=== PATIENT | male | born 1960 | race Caucasian/White ===

== ENCOUNTER 2024-03-16 18:38 | Inpatient (IN) | payer OTHER, SELFPAY ==
--- NOTE | ~2024-03-16 | XR_ITS ---
EXAMINATION: XR elbow RT min 3V XR wrist RT min 3V CLINICAL INFORMATION: Trauma COMPARISON: None TECHNIQUE: AP and lateral view of the right elbow, 2 images. PA, lateral and oblique views of the right wrist, 3 images. FINDINGS: Right elbow: Acute fracture through the olecranon process with 3 cm distraction. The humeroradial joint is maintained. The radius is intact. There is associated soft tissue swelling. No significant joint effusion. No radiopaque foreign body. Right wrist: No acute fracture. The carpal rows are appropriately aligned. Joint spaces are maintained. Alignment is anatomic. There is moderate first carpometacarpal joint arthrosis with osteophytosis. No erosions or soft tissue calcifications. XR/XR elbow RT min 3V IMPRESSION: 1. Acute fracture through the olecranon process with 3 cm distraction. The humeroradial joint is maintained. 2. No acute fracture or dislocation of the right wrist.
--- NOTE | ~2024-03-16 | XR_ITS ---
EXAMINATION: XR elbow RT min 3V XR wrist RT min 3V CLINICAL INFORMATION: Trauma COMPARISON: None TECHNIQUE: AP and lateral view of the right elbow, 2 images. PA, lateral and oblique views of the right wrist, 3 images. FINDINGS: Right elbow: Acute fracture through the olecranon process with 3 cm distraction. The humeroradial joint is maintained. The radius is intact. There is associated soft tissue swelling. No significant joint effusion. No radiopaque foreign body. Right wrist: No acute fracture. The carpal rows are appropriately aligned. Joint spaces are maintained. Alignment is anatomic. There is moderate first carpometacarpal joint arthrosis with osteophytosis. No erosions or soft tissue calcifications. XR/XR wrist RT min 3V IMPRESSION: 1. Acute fracture through the olecranon process with 3 cm distraction. The humeroradial joint is maintained. 2. No acute fracture or dislocation of the right wrist.
--- NOTE | ~2024-03-16 | FL_ITS ---
EXAMINATION: XR FLUOROSCOPY WITH IMAGES CLINICAL INFORMATION: Right elbow ORIF. COMPARISON: Right elbow 03/16/2024 TECHNIQUE: Fluoroscopy Supervised By: Dr. Robert Ng. Fluoroscopy Time: 0.0. Cumulative Dose: 0.127 mGy. DAP: 0.72187 mGy-cm2. Images: 2. FINDINGS: 2 images obtained during pinning and cerclage suturing of distracted olecranon fracture. Imaging shows good alignment. See Dr. Robert Ng's report for full details. FL/FL guidance in OR IMPRESSION: Fluoroscopy and spot films provided during ORIF of olecranon fracture.
[2024-03-16 18:56] VITALS: BP 90/56; PULSE 67; RESP 18; TEMP 36.8; O2SAT 97; BMI 22.4
[2024-03-16 19:15] VITALS: BP 119/79; PULSE 64; RESP 21; TEMP 36.9; O2SAT 96
--- NOTE | 2024-03-16 19:17 | ED_ITS ---
HPI - Fall General Chief Complaint: Fall Stated Complaint: elbow inj, fell from ladder Time Seen by Provider: 03/16/24 19:16 Source: patient Mode of arrival: ambulatory History of Present Illness ED Provider: Blessing Mccauley PA-C HPI Narrative: 63-year-old male with history of TBI, PTSD and anxiety presents after a fall. Patient states he was on a ladder cleaning out his gutters. He was on the lower 5th step when he fell backwards landing onto his elbow. Patient complains of elbow pain and right hip pain. Patient did not strike his head, he has not on blood thinners. Patient has been ambulatory since the fall. Tetanus vaccine is up-to-date. Related Data Allergies Allergy/AdvReac Type Severity Reaction Status Date / Time acetaminophen [From PERCOCET] Allergy Mild VOMITING Verified 03/16/24 19:00 From PERCOCET Allergy Mild VOMITING Uncoded 06/03/20 15:37 Review of Systems 2 Review of Systems: Yes all other systems are reviewed and are negative Constitutional: Constitutional: Denies fatigue and Denies fever(s) Cardiovascular: Cardiovascular: Denies chest pain and Denies dyspnea Respiratory: Respiratory: Denies dyspnea Gastrointestinal: Gastrointestinal: Denies abdominal pain Musculoskeletal: Musculoskeletal: Reports arthralgias Endocrine: Endocrine: Denies fatigue PMFSH Past Medical History Attestation statement: The following information was validated with the patient. Social History Social History Smoked in Last 30 Days: No Use of substances other than those prescribed or required for medical reasons: No Advance Directives: No Advance Directives Information Provided: Yes Do you have a plan to hurt others: No Plan Physical Exam 2 Vital Signs: Vital Signs: Last Vital Signs Temp 98.5 F 03/16/24 19:15 Pulse 64 03/16/24 19:15 Resp 14 03/16/24 20:07 BP 119/79 03/16/24 19:15 Pulse Ox 96 03/16/24 19:15 O2 Del Method Room Air 03/16/24 19:15 BMI result Body Mass Index 22.4 Const: Other: Alert, well in appearance, no sign of head trauma on exam Orientation/consciousness: oriented to person, oriented to place and oriented to time Chest: Other: No focal right lateral chest wall pain or deformity Resp: Other: Nonlabored respirations Cardio: Other: Normal peripheral perfusion Skin: Other: No rash Neuro: General: oriented to person, oriented to place and oriented to time Psych: Other: Cooperative, anxious, tearful Course Consultations Consultation #1: paged Idalia Lassiter PA-C from the orthopedic service, she will be admitting the Pt to their service Time: 19:53 Medications Administered Discontinued Medications Generic Name Dose Route Start Last Admin Trade Name Layo PRN Reason Stop Dose Admin Cefazolin Sodium/Dextrose 2 gm in 50 mls @ 100 mls/hr 03/16/24 19:46 03/16/24 20:40 Ancef IV 03/16/24 20:15 Infused ONCE ONE Infusion Lorazepam 1 mg 03/16/24 20:37 03/16/24 21:03 Lorazepam 2 Mg/Ml Vial IVPUSH 03/16/24 20:38 1 mg ONCE ONE Administration Morphine Sulfate 4 mg 03/16/24 19:22 03/16/24 20:07 Morphine Sulfate 4 Mg/Ml Cartridge IVPUSH 03/16/24 19:23 4 mg ONCE ONE Administration Protocol Ondansetron HCl 4 mg 03/16/24 19:22 03/16/24 20:07 Ondansetron Hcl 4 Mg/2 Ml Vial IVPUSH 03/16/24 19:23 4 mg ONCE ONE Administration Procedures Laceration Laceration 1: Site: upper extremity (elbow) Side (If applicable): right Size (cm): 0.5 Description: other (punctures, 2 sites surrounding olecranon) Depth: simple, single layer Local Anesthetic: lidocaine 2% and with epi Amount of anesthesia used (mL): 3 Pre-repair: irrigated extensively Skin layer closed with: nylon Size (cm): 3-0 Number of sutures: 3 Technique: simple, interrupted Orthopedic Splinting/Casting Injury #1: Side: right Upper Extremity Injury Location: elbow Upper Extremity Immobilizer: sugar tong splint Medical Decision Making Medical Decision Making MDM Narrative: 63-year-old male with history of TBI, PTSD and anxiety presents after a fall. Patient states he was on a ladder cleaning out his gutters. He was on the lower 5th step when he fell backwards landing onto his elbow. Patient complains of elbow pain and right hip pain. Patient did not strike his head, he has not on blood thinners. Patient has been ambulatory since the fall. Tetanus vaccine is up-to-date. No relevant chronic issues History: Per patient and his partner I have considered the following differential diagnoses: Fracture, dislocation, contusion, laceration Plan: We will be imaging the elbow and the wrist, as he is having referred pain to the wrist. We will obtain screening labs and a the event that the patient has sustained an acute injury that require surgical intervention. We will be giving morphine and Zofran. To note, the patient does not have an allergy to Percocet he simply becomes nauseous. After taking down the dressing, the patient has 2 puncture wounds surrounding the olecranon, I will place a few sutures to control the bleeding. We will be splinting the injury as well I have independently reviewed the following tests: Labs: X-ray right elbow: Olecranon fracture X-ray right wrist: No fracture or dislocation We will be patient orthopedic service Lab Data 03/16/24 19:51 03/16/24 19:51 Labs: Lab Results 03/16/24 Range/Units 19:51 WBC 14.7 H (4.8-10.8) X10*3/uL RBC 4.38 L (4.60-5.80) X10*6/uL Hgb 14.1 (14.0-18.0) g/dl Hct 39.1 L (42.0-52.0) % MCV 89.3 (80.0-98.0) fL MCH 32.2 (27.0-33.0) pg MCHC 36.1 H (31.0-36.0) g/dl RDW 11.9 (11.0-16.0) % Plt Count 258 (160-400) X10*3/uL MPV 9.4 (9.4-12.4) fL Immature Gran % (Auto) 0.4 (0.0-0.4) % Neut % (Auto) 78.8 H (45-73) % Lymph % (Auto) 10.9 L (20-40) % Winn % (Auto) 8.7 (2-11) % Eos % (Auto) 0.9 (0-4) % Baso % (Auto) 0.3 (0-2) % Lymph # (Auto) 1.6 (1.2-4.9) X10*3/uL Winn # (Auto) 1.3 H (0.1-1.2) X10*3/uL Eos # (Auto) 0.1 (0.0-0.4) X10*3/uL Baso # (Auto) 0.0 (0.0-0.2) X10*3/uL Abs Immat Gran (auto) 0.06 H (0.00-0.03) X10*3/uL Absolute Neuts (auto) 11.6 H (2.0-8.3) x10*3/uL Absolute Nucleated RBC 0.000 (0.0-0.012) X10*3/uL Nucleated RBC % (auto) 0.0 (0.0-0.2) /100WBC Sodium 140 (135-145) mmol/L Potassium 3.8 (3.3-5.1) mmol/L Chloride 103 (96-108) mmol/L Carbon Dioxide 28 (22-29) mmol/L Anion Gap 13 (12-20) BUN 24 H (9-16) mg/dL Creatinine 0.88 (0.5-1.4) mg/dL Estim Creat Clear Calc 90.9 Estimated GFR > 60 Random Glucose 99 (60-115) mg/dL Calcium 9.6 (8.4-10.2) mg/dL Magnesium 2.0 (1.6-2.6) mg/dL Total Bilirubin 0.6 (0.0-1.0) mg/dL AST 19 (5-37) U/L ALT 18 (0-40) U/L Alkaline Phosphatase 43 (39-117) U/L Total Protein 6.3 L (6.5-8.0) g/dL Albumin 4.0 (3.5-5.0) g/dL Discharge Plan Discharge Clinical Impression: Fracture of olecranon, right, open Patient Disposition: Admitted As Inpatient
[2024-03-16 19:55] LABS: MANUAL DIFF FLAG NO
[2024-03-16 19:56] LABS: Basophils Percent Auto 0.3 % (0-2); Eosinophils Absolute Auto 0.1 X10*3/uL (0.0-0.4); Eosinophils Percent Auto 0.9 % (0-4); Hematocrit 39.1 % (42.0-52.0); Hemoglobin 14.1 g/dl (14.0-18.0); Imm Gran Abs Auto 0.06 X10*3/uL (0.00-0.03); Imm Gran Pct Auto 0.4 % (0.0-0.4); Lymphocytes Absolute Auto 1.6 X10*3/uL (1.2-4.9); Lymphocytes Percent Auto 10.9 % (20-40); Mean Corpuscular HGB Conc 36.1 g/dl (31.0-36.0); Mean Corpuscular Hemoglobin 32.2 pg (27.0-33.0); Mean Corpuscular Volume 89.3 fL (80.0-98.0); Mean Platelet Volume 9.4 fL (9.4-12.4); Monocytes Absolute Auto 1.3 X10*3/uL (0.1-1.2); Monocytes Percent Auto 8.7 % (2-11); Neutrophils Absolute Auto 11.6 x10*3/uL (2.0-8.3); Neutrophils Percent Auto 78.8 % (45-73); Platelet Count 258 X10*3/uL (160-400); Red Blood Count 4.38 X10*6/uL (4.60-5.80); Red Cell Distribution Width 11.9 % (11.0-16.0); White Blood Count 14.7 X10*3/uL (4.8-10.8)
--- NOTE | 2024-03-16 20:06 | PC.NURSE ---
Per Claritza, ED provider, blood draw for lactic acid and blood cultures not needed at this time.
[2024-03-16 20:07] VITALS: RESP 14
[2024-03-16] MEDS: Morphine Sulfate 4 MG/ML CARTRIDGE IVPUSH (20:07)
[2024-03-16] MEDS: ceFAZolin Sodium/Dextrose,Iso 2 GM/50 ML PIGGYBACK IV (20:07)
[2024-03-16] MEDS: ondansetron HCL 4 MG/2 ML VIAL IVPUSH (20:07)
[2024-03-16 20:09] LABS: Alanine Aminotransferase 18 U/L (0-40); Alkaline Phosphatase 43 U/L (39-117); Anion Gap 13 (12-20); Aspartate Amino Transferase 19 U/L (5-37); Bilirubin Total 0.6 mg/dL (0.0-1.0); Blood Urea Nitrogen 24 mg/dL (9-16); Calcium 9.6 mg/dL (8.4-10.2); Carbon Dioxide 28 mmol/L (22-29); Chloride 103 mmol/L (96-108); Creatinine Clr Calc Pharmacy 90.9; Estimated Glomerular Filt Rate > 60; Glucose Random 99 mg/dL (60-115); Potassium 3.8 mmol/L (3.3-5.1); Sodium 140 mmol/L (135-145); Total Protein 6.3 g/dL (6.5-8.0)
[2024-03-16] MEDS: LORazepam 2 MG/ML VIAL 1 MG IVPUSH (21:03)
--- NOTE | 2024-03-16 22:07 | PM.EVENT ---
Event Note Date of Service: 03/16/24 Event Note: Patient with Rt olecranon fx -admit to ortho -pending ORIF tues or weds Post splint, keep clean dry and intact elevate Full H&P note to follow Time Spent With Patient Time: Total time managing care of this patient today ____ minutes.
[2024-03-16 22:42] VITALS: BP 111/64; PULSE 86; RESP 15; TEMP 36.8; O2SAT 96
[2024-03-16 23:08] VITALS: RESP 20
[2024-03-16] MEDS: Lactated Ringers 1,000 ML 100 ML IVCONT (23:08)
[2024-03-16] MEDS: HYDROmorphone HCl 0.5 MG/0.5 ML SYRINGE 0.25 MG IVPUSH (23:08)
[2024-03-16] MEDS: 0.9 % Sodium Chloride Flush 3 ML SYRINGE IVFLUSH (23:10)
[2024-03-17] VITALS (7 sets, daily range): BP systolic 120–161; BP diastolic 75–93; PULSE 52–64; RESP 15–18; TEMP 36.1–37.1; O2SAT 96–98; BMI 23.2
[2024-03-17] MEDS: oxyCODONE HCl Immed Release 5 MG TABLET PO ×2 (01:22→12:20)
[2024-03-17 05:12] LABS: Basophils Percent Auto 0.3 % (0-2); Eosinophils Absolute Auto 0.1 X10*3/uL (0.0-0.4); Eosinophils Percent Auto 0.7 % (0-4); Hematocrit 38.9 % (42.0-52.0); Hemoglobin 13.9 g/dl (14.0-18.0); Imm Gran Abs Auto 0.04 X10*3/uL (0.00-0.03); Imm Gran Pct Auto 0.3 % (0.0-0.4); Lymphocytes Percent Auto 16.1 % (20-40); MANUAL DIFF FLAG NO; Mean Corpuscular HGB Conc 35.7 g/dl (31.0-36.0); Mean Corpuscular Hemoglobin 32.3 pg (27.0-33.0); Mean Corpuscular Volume 90.5 fL (80.0-98.0); Mean Platelet Volume 9.5 fL (9.4-12.4); Monocytes Absolute Auto 1.4 X10*3/uL (0.1-1.2); Monocytes Percent Auto 11.2 % (2-11); Neutrophils Absolute Auto 8.7 x10*3/uL (2.0-8.3); Neutrophils Percent Auto 71.4 % (45-73); Platelet Count 226 X10*3/uL (160-400); Red Cell Distribution Width 12.1 % (11.0-16.0); White Blood Count 12.2 X10*3/uL (4.8-10.8)
[2024-03-17 05:29] LABS: Anion Gap 12 (12-20); Blood Urea Nitrogen 21 mg/dL (9-16); Calcium 9.3 mg/dL (8.4-10.2); Carbon Dioxide 27 mmol/L (22-29); Chloride 105 mmol/L (96-108); Creatinine Clr Calc Pharmacy 97.6; Estimated Glomerular Filt Rate > 60; Glucose Fasting 100 mg/dL (60-99); Potassium 4.1 mmol/L (3.3-5.1); Sodium 140 mmol/L (135-145)
--- NOTE | 2024-03-17 07:45 | P.HPOP_ITS ---
History of Present Illness History of Present Illness Date of Service: 03/17/24 <Idalia Lassiter PA-C - Last Filed: 03/17/24 10:07> 03/18/24 <Robert Ng MD - Last Filed: 03/18/24 15:16> Chief complaint: Rt Olecranon fracture <Idalia Lassiter PA-C - Last Filed: 03/17/24 10:07> Narrative: Hebert Owens is a 63 year old male admitted to the orthopedic service s/p falling off a ladder yesterday while cleaning his gutters. He was brought to the ED where xrays were obtained which were significant for Right displaced olecranon fracture. He has a H GERD, anxiety/depression and Prostate cancer s/p protatectomy 2022. Not on any chemo/radiation medications. He is Left hand dominant. He lives at home with his partner, Solo. 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 <Idalia Lassiter PA-C - Last Filed: 03/17/24 10:07> Review of Systems 2 Review of Systems: Yes all other systems are reviewed and are negative < Idalia Lassiter PA-C - Last Filed: 03/17/24 10:07> [facility] Past Medical History Medical History: Medical History Prostate cancer Depression Anxiety GERD (gastroesophageal reflux disease) <Idalia Lassiter PA-C - Last Filed: 03/17/24 10:07> Surgical History Surgical History: Surgical History (Updated 03/18/24 @ 14:10 by Shima Washington RN) Hx of colonoscopy H/O prostatectomy <Idalia Lassiter PA-C - Last Filed: 03/17/24 10:07> Social History Social History: Social History Household Members: Significant Other Housing: House Do you presently have visiting nurse or other home services: No Comment: patient rings appropriately Patient Tobacco Use Status: Former Tobacco user Smoked in Last 30 Days: No Use of substances other than those prescribed or required for medical reasons: No Currently Displaying Signs/Symptoms of Drug Intoxication Withdrawal: No Have you been hit, kicked, punched, or otherwise hurt by someone within the past year? If so, by whom?: No Do you feel safe in your current relationship?: Yes Is there a partner from a previous relationship who is making you feel unsafe now?: No Are you made to feel afraid or neglected: No Are you DNR?: No Advance Directives: No Advance Directives Information Provided: Yes Do you have a plan to hurt others: No Plan Recently lost weight without trying: No Nutrition Risks: No Nutritional Risk service: No <Idalia Lassiter PA-C - Last Filed: 03/17/24 10:07> Meds Allergies/Adverse reactions: Allergies Allergy/AdvReac Type Severity Reaction Status Date / Time acetaminophen [From PERCOCET] Allergy Mild VOMITING Verified 03/18/24 13:56 From PERCOCET Allergy Mild VOMITING Uncoded 03/18/24 13:56 <Idalia Lassiter PA-C - Last Filed: 03/17/24 10:07> Active Medications: Current Medications Acetaminophen (Acetaminophen 325 Mg Tablet) 650 mg PO Q6H PRN PRN Reason: Pain, Mild (Pain Scale 1-3), fever or headache Docusate Sodium (Docusate Sodium 100 Mg Capsule) 100 mg PO BID LOY Hydromorphone HCl (Hydromorphone Hcl 0.5 Mg/0.5 Ml Syringe) 0.25 mg IVPUSH Q4H PRN; Protocol PRN Reason: Pain, Severe (Pain Scale 7-10) Last Admin: 03/16/24 23:08 Dose: 0.25 mg Lactated Ringer's (Lr) 1,000 mls @ 100 mls/hr IVCONT .Q10H LOY Last Admin: 03/16/24 23:08 Dose: 100 mls/hr Ondansetron HCl (Ondansetron Hcl 4 Mg/2 Ml Vial) 4 mg IVPUSH Q8H PRN PRN Reason: Nausea and Vomiting Oxycodone HCl (Oxycodone Hcl Immed Release 5 Mg Tablet) 5 mg PO Q4H PRN PRN Reason: Pain, Moderate(Pain Scale 4-6) Last Admin: 03/17/24 01:22 Dose: 5 mg Sodium Chloride (0.9 % Sodium Chloride Flush 3 Ml Syringe) 3 ml IVFLUSH QSHIFT [facility] Last Admin: 03/16/24 23:10 Dose: 3 ml <Idalia aLssiter PA-C - Last Filed: 03/17/24 10:07> Home medications: Home Medications ?Medication ?Instructions ?Recorded ?Confirmed ?Last Taken ?Type Lactobacillus rhamnosus GG 10 1 cap PO DAILY 03/17/24 03/17/24 03/16/24 History billion cell capsule (Culturelle) alprazolam 0.25 mg tablet 0.25 mg PO DAILY 03/17/24 03/17/24 03/16/24 History atorvastatin 10 mg tablet 10 mg PO DAILY 03/17/24 03/17/24 03/16/24 History cholecalciferol (vitamin D3) 25 25 mcg PO DAILY 03/17/24 03/17/24 03/16/24 History mcg (1,000 unit) tablet (Vitamin D3) escitalopram oxalate 5 mg/5 mL 4 mg PO DAILY 03/17/24 03/17/24 03/16/24 History oral solution [id number]-fish oil 120 1 cap PO DAILY 03/17/24 03/17/24 03/16/24 History mg-180 mg-60 mg-1,200 mg capsule, DR (Fish Oil) omeprazole 40 mg capsule,delayed 40 mg PO DAILY 03/17/24 03/17/24 03/16/24 History release potassium citrate 10 mEq (1,080 20 meq PO DAILY 03/17/24 03/17/24 03/16/24 History mg) tablet,extended release tadalafil 5 mg tablet 5 mg PO DAILY PRN Erectile 03/17/24 03/17/24 Unknown History Dysfunction trazodone 50 mg tablet 50 mg PO BEDTIME 03/17/24 03/17/24 03/16/24 History <Idalia Lassiter PA-C - Last Filed: 03/17/24 10:07> Physical Exam 2 Vital Signs: Vital Signs: Last Vital Signs Temp 98.4 F 03/17/24 07:23 Pulse 63 03/17/24 07:23 Resp 16 03/17/24 07:23 BP 127/77 03/17/24 07:23 Pulse Ox 96 03/17/24 07:23 O2 Del Method Room Air 03/17/24 07:23 BMI result Body Mass Index 23.2 <ANANYA Kilgore Last Filed: 03/17/24 10:07> Const: General: cooperative, healthy appearing, comfortable, no acute distress, well developed and alert <Idalia Lassiter ANANYA - Last Filed: 03/17/24 10:07> Orientation/consciousness: patient oriented x3 <ANANYA Kilgore Last Filed: 03/17/24 10:07> HEENT: Head: Yes normal to inspection, Yes normocephalic and Yes atraumatic <Idalia Lassiter PA-C - Last Filed: 03/17/24 10:07> Eyes: General: appearance normal, both eyes and all related structures < Idalia Lassiter ANANYA Martinez Last Filed: 03/17/24 10:07> Neck: Neck: Yes normal visual inspection and Yes no lymphadenopathy <Jordyn Lassiter ANANYA - Last Filed: 03/17/24 10:07> Resp: Effort & Inspection: normal respiratory effort and able to speak in complete sentences <Idalia Lassiter ANANYA Martinez Last Filed: 03/17/24 10:07> Cardio: Rate: regular rate <ANANYA Kilgore Filed: 03/17/24 10:07> Peripheral pulses: Peripheral pulses 2+ throughout <Idalia Lassiter ANANYA Martinez Filed: 03/17/24 10:07> GI: Inspection: Yes normal to inspection <Idalia Lassiter ANANYA Martinez Filed: 03/17/24 10:07> Palpation (GI): Soft to palpation <Idalia Lassiter ANANYA Last Filed: 03/17/24 10:07> Skin: General skin exam: no rashes or lesions noted <Idalia Lassiter ANANYA Martinez Filed: 03/17/24 10:07> Neuro: General: patient oriented x3 <Idalia Lassiter ANANYA Martinez Filed: 03/17/24 10:07> Extrem: Other: Right elbow splint intact. He has good sensation throughout the deltoid region and into the hand and fingers. Pulses inact. Of note, ED did mention two punctures around the elbow they had to wash and suture. <Idalia GaminoANANYA aguilera - Last Filed: 03/17/24 10:07> Psych: Appearance: grossly normal <Idalia LassiterANANYA - Last Filed: 03/17/24 10:07> Mental Status: mental status grossly normal <Andreaa ANANYA aguilera - Last Filed: 03/17/24 10:07> Results Labs Result Diagrams: 03/18/24 08:21 03/18/24 08:21 <Idalia GaminoANANYA aguilera - Last Filed: 03/17/24 10:07> Labs: Abnormal lab results 03/16/24 03/17/24 Range/Units 19:51 05:06 WBC 14.7 H 12.2 H (4.8-10.8) X10*3/uL RBC 4.38 L 4.30 L (4.60-5.80) X10*6/uL Hgb 13.9 L (14.0-18.0) g/dl Hct 39.1 L 38.9 L (42.0-52.0) % MCHC 36.1 H (31.0-36.0) g/dl Neut % (Auto) 78.8 H (45-73) % Lymph % (Auto) 10.9 L 16.1 L (20-40) % Fisher % (Auto) 11.2 H (2-11) % Fisher # (Auto) 1.3 H 1.4 H (0.1-1.2) X10*3/uL Abs Immat Gran (auto) 0.06 H 0.04 H (0.00-0.03) X10*3/uL Absolute Neuts (auto) 11.6 H 8.7 H (2.0-8.3) x10*3/uL BUN 24 H 21 H (9-16) mg/dL Fasting Glucose 100 H (60-99) mg/dL Total Protein 6.3 L (6.5-8.0) g/dL H & H 03/16/24 03/17/24 Range/Units 19:51 05:06 Hgb 14.1 13.9 L (14.0-18.0) g/dl Hct 39.1 L 38.9 L (42.0-52.0) % All other labs normal. <Idalia Lassiter PA-C Last Filed: 03/17/24 10:07> Diagnostic results Elbow x-ray: other (XR elbow RT min 3V IMPRESSION: 1. Acute fracture through the olecranon process with 3 cm distraction. The humeroradial joint is maintained. 2. No acute fracture or dislocation of the right wrist.) <Idalia Lassiter PA-C Last Filed: 03/17/24 10:07> Assessment and Plan (1) Closed fracture of right olecranon process: Qualifiers: Encounter type: initial encounter Qualified Code(s): S 52.021A - Displaced fracture of olecranon process without intraarticular extension of right ulna, initial encounter for closed fracture <Idalia Lassiter PA-C Last Filed: 03/17/24 10:07> Status: Acute <Idalia Lassiter PA-C Filed: 03/17/24 10:07> I discussed the case with Dr Ng and explained the extent of the injury to the patient and options available which include surgical intervention. I explained the procedure in detail along with the length of recovery and rehab course. I explained the risk, benefits and alternatives. Risk including, but not limited to infection, blood clots, bleeding, non union or malunion , stiffness and nerve/tissue damage to surrounding areas. I answered all their questions and with their understanding they have consented to move forward with Operative Fixation of the Right elbow . The patient will be seen by medicine pre op and NPO after midnight. <Idalia Lassiter PA-C Last Filed: 03/17/24 10:07> Quality Stroke Does the patient have a stroke diagnosis?: No <Idalia Lassiter PA-C Filed: 03/17/24 10:07> VTE Prior VTE?: No <Idalia Lassiter PA-C Filed: 03/17/24 10:07> VTE Risk Level:: Surgical - low <Idalia Lassiter PA-C Filed: 03/17/24 10:07> VTE Device Contraindication: N/A - Device Ordered <Idalia Lassiter PA-C - Last Filed: 03/17/24 10:07> VTE Drug Contraindication: Treatment Not Indicated <Idalia Lassiter PA-C - Last Filed: 03/17/24 10:07> Procedures Date of Service Date of Service: 03/17/24 <Idalia Lassiter PA-C - Last Filed: 03/17/24 10:07> 03/18/24 <Robert Ng MD - Last Filed: 03/18/24 15:16>
[2024-03-17] MEDS: Lactated Ringers 1,000 ML 100 ML IVCONT ×2 (09:07→19:21)
--- NOTE | 2024-03-17 09:14 | P.CONHOSP_ITS ---
History of Present Illness Data of Consult Service Date: 03/17/24 Requesting physician: Idalia Lassiter Primary Care Provider: Lanre Pratt MD [facility] Reason for consult: medical evaluation pre op 63-year-old male with history of hyperlipidemia, mood disorder, history of prostate cancer s/p radical prostatectomy ([facility]), and GERD admitted to Orthopedic surgery for right-sided olecranon fracture with consult placed hospitalist service for preoperative clearance. The patient reports that yesterday while cleaning the gutters on a ladder, slipped and fell backwards landing directly on the right elbow. He reports pain is currently controlled in the elbow. Does endorse some pleuritic chest pain. No sob, uriostegui, wheezing, lightheadedness, palpitations, or retrostrenal chest pressure. He has no known history of cardiovascaular disease or stroke. He is a former alcohol smoker but denies any illicit substance use or alcohol use. Review of Systems 2 Review of Systems: Yes all other systems are reviewed and are negative FORMERLY [facility], [facility] Medical History Prostate cancer Depression Anxiety GERD (gastroesophageal reflux disease) Surgical History H/O prostatectomy Social History Household Members: Significant Other Housing: House Do you presently have visiting nurse or other home services: No Patient Tobacco Use Status: Former Tobacco user Smoked in Last 30 Days: No Use of substances other than those prescribed or required for medical reasons: No Have you been hit, kicked, punched, or otherwise hurt by someone within the past year? If so, by whom?: No Do you feel safe in your current relationship?: Yes Is there a partner from a previous relationship who is making you feel unsafe now?: No Are you made to feel afraid or neglected: No Advance Directives: No Advance Directives Information Provided: Yes Do you have a plan to hurt others: No Plan Recently lost weight without trying: No Nutrition Risks: No Nutritional Risk service: No Meds Allergies Allergy/AdvReac Type Severity Reaction Status Date / Time acetaminophen [From PERCOCET] Allergy Mild VOMITING Verified 03/16/24 19:00 From PERCOCET Allergy Mild VOMITING Uncoded 06/03/20 15:37 Active Medications: Current Medications Acetaminophen (Acetaminophen 325 Mg Tablet) 650 mg PO Q6H PRN PRN Reason: Pain, Mild (Pain Scale 1-3), fever or headache Docusate Sodium (Docusate Sodium 100 Mg Capsule) 100 mg PO BID [facility] Hydromorphone HCl (Hydromorphone Hcl 0.5 Mg/0.5 Ml Syringe) 0.25 mg IVPUSH Q4H PRN; Protocol PRN Reason: Pain, Severe (Pain Scale 7-10) Last Admin: 03/16/24 23:08 Dose: 0.25 mg Lactated Ringer's (Lr) 1,000 mls @ 100 mls/hr IVCONT .Q10H LOY Last Admin: 03/17/24 09:07 Dose: 100 mls/hr Ondansetron HCl (Ondansetron Hcl 4 Mg/2 Ml Vial) 4 mg IVPUSH Q8H PRN PRN Reason: Nausea and Vomiting Oxycodone HCl (Oxycodone Hcl Immed Release 5 Mg Tablet) 5 mg PO Q4H PRN PRN Reason: Pain, Moderate(Pain Scale 4-6) Last Admin: 03/17/24 01:22 Dose: 5 mg Sodium Chloride (0.9 % Sodium Chloride Flush 3 Ml Syringe) 3 ml IVFLUSH QSHIFT [facility] Last Admin: 03/17/24 08:26 Dose: Not Given Home Medications ?Medication ?Instructions ?Recorded ?Confirmed ?Last Taken ?Type Lactobacillus rhamnosus GG 10 1 cap PO DAILY 03/17/24 03/17/24 03/16/24 History billion cell capsule (Culturelle) alprazolam 0.25 mg tablet 0.25 mg PO DAILY 03/17/24 03/17/24 03/16/24 History atorvastatin 10 mg tablet 10 mg PO DAILY 03/17/24 03/17/24 03/16/24 History cholecalciferol (vitamin D3) 25 25 mcg PO DAILY 03/17/24 03/17/24 03/16/24 History mcg (1,000 unit) tablet (Vitamin D3) escitalopram oxalate 5 mg/5 mL 4 mg PO DAILY 03/17/24 03/17/24 03/16/24 History oral solution trjeu-0c-xvo-epa-fish oil 120 1 cap PO DAILY 03/17/24 03/17/24 03/16/24 History mg-180 mg-60 mg-1,200 mg capsule, DR (Fish Oil) omeprazole 40 mg capsule,delayed 40 mg PO DAILY 03/17/24 03/17/24 03/16/24 History release potassium citrate 10 mEq (1,080 20 meq PO DAILY 03/17/24 03/17/24 03/16/24 History mg) tablet,extended release tadalafil 5 mg tablet 5 mg PO DAILY PRN Erectile 03/17/24 03/17/24 Unknown History Dysfunction trazodone 50 mg tablet 50 mg PO BEDTIME 03/17/24 03/17/24 03/16/24 History Physical Exam 2 Vital Signs and Narrative: Vital Signs: Last Vital Signs Temp 98.4 F 03/17/24 07:23 Pulse 63 03/17/24 07:23 Resp 16 03/17/24 07:23 BP 127/77 03/17/24 07:23 Pulse Ox 96 03/17/24 07:23 O2 Del Method Room Air 03/17/24 07:23 BMI result Body Mass Index 23.2 Constitutional - Awake and Alert, No apparent distress Eyes - PERRLA, EOMI Cardiovascular - S1S2, RRR, No edema, 2+ radial pulses bilaterally Chest- preproducible ttp across anterior chest Respiratory - Normal lung expansion, Normal respiratory effort, No respiratory distress, CTA bilaterally Gastrointestinal - NT / ND; +BS; No rebound or guarding Extremities - no calf tenderness bilaterally, no swelling Musculoskeletal - right upper extremity immobilized and fiberglass splint Skin - Warm/Dry Neurological - Alert & oriented x3, sensation in tact Results Labs 03/17/24 05:06 03/17/24 05:06 Labs: Laboratory Results - last 24 hr 03/16/24 03/17/24 19:51 05:06 MCV 89.3 90.5 MCH 32.2 32.3 MCHC 36.1 H 35.7 RDW 11.9 12.1 Plt Count 258 226 MPV 9.4 9.5 Immature Gran % (Auto) 0.4 0.3 Neut % (Auto) 78.8 H 71.4 Lymph % (Auto) 10.9 L 16.1 L [place] % (Auto) 8.7 11.2 H Eos % (Auto) 0.9 0.7 Baso % (Auto) 0.3 0.3 Lymph # (Auto) 1.6 2.0 [place] # (Auto) 1.3 H 1.4 H Eos # (Auto) 0.1 0.1 Baso # (Auto) 0.0 0.0 Abs Immat Gran (auto) 0.06 H 0.04 H Absolute Neuts (auto) 11.6 H 8.7 H Absolute Nucleated RBC 0.000 0.000 Nucleated RBC % (auto) 0.0 0.0 Anion Gap 13 12 Estim Creat Clear Calc 90.9 97.6 Estimated GFR > 60 > 60 Random Glucose 99 Fasting Glucose 100 H Calcium 9.6 9.3 Magnesium 2.0 Total Bilirubin 0.6 AST 19 ALT 18 Alkaline Phosphatase 43 Total Protein 6.3 L Albumin 4.0 Imaging Radiologist's Impressions: Impressions Elbow X-Ray 03/16/24 19:30 IMPRESSION: 1. Acute fracture through the olecranon process with 3 cm distraction. The humeroradial joint is maintained. 2. No acute fracture or dislocation of the right wrist. Wrist X-Ray 03/16/24 19:30 IMPRESSION: 1. Acute fracture through the olecranon process with 3 cm distraction. The humeroradial joint is maintained. 2. No acute fracture or dislocation of the right wrist. Assessment and Plan (1) Closed fracture of right olecranon process: Qualifiers: Encounter type: initial encounter Qualified Code(s): S52.021A - Displaced fracture of olecranon process without intraarticular extension of right ulna, initial encounter for closed fracture Status: Acute Plan 63-year-old male with history of hyperlipidemia, mood disorder, history of prostate cancer s/p radical prostatectomy ([facility]), and GERD admitted for orthopedic surgery for R olecranon fracture. #R olecranon fracture -plan and pain management per ortho surgery -Pt is Class I (low) risk on revised cardiac risk index #GERD -ppi #HLD -statin #Mood disorder -continue home meds Thank you for allowing me to participate in this consult. Signing off at this time. Please do not hesitate to call for further questions.
--- NOTE | 2024-03-17 09:56 | PHA.MEDREC ---
Pharmacy Consult ? Medication Reconciliation Pharmacy has completed the medication reconciliation. Spoke to patent to confirm med list. Patient was a great historian, he was able to tell me everything he was taken. Everything the patient stated matched with claims.
[2024-03-17] MEDS: HYDROmorphone HCl 0.5 MG/0.5 ML SYRINGE 0.25 MG IVPUSH ×2 (10:12→19:34)
--- NOTE | 2024-03-17 10:49 | MHC.CM.PN ---
CM MET WITH PT AND SPOUSE AT BEDSIDE. PT LIVES WITH SPOUSE AND IS INDEPENDENT/EMPLOYED F/T. + HCP PER SPOUSE, HE WILL BRING IN COPY. PCP DR. MEEHAN DP: HOME, SERVICES FOR OT/PT ANTICIPATED. FIRST CHOICE [facility]. REFERRAL SENT. [facility]SE WILL TRANSPORT HOME. CM WILL CONTINUE TO FOLLOW FOR ANY CHANGE TO DC PLAN/NEEDS.
[2024-03-17] MEDS: Docusate Sodium 100 MG CAPSULE PO ×2 (12:20→20:54)
--- NOTE | 2024-03-17 13:15 | ECG_ITS ---
Test Reason : preop Blood Pressure : / mmHG Vent. Rate : 067 BPM Atrial Rate : 067 BPM P-R Int : 156 ms QRS Dur : 080 ms QT Int : 398 ms P-R-T Axes : 058 058 049 degrees QTc Int : 420 ms Normal sinus rhythm Septal infarct , age undetermined Abnormal ECG No previous ECGs available Referred By: Luna Bates Electronically Signed By:ZEV ONEAL
[2024-03-17] MEDS: ondansetron HCL 4 MG/2 ML VIAL IVPUSH (18:20)
[2024-03-17] MEDS: traZODone HCL 50 MG TABLET PO (20:54)
[2024-03-18] VITALS (12 sets, daily range): BP systolic 118–159; BP diastolic 62–90; PULSE 55–74; RESP 12–18; TEMP 36.1–36.8; O2SAT 94–98
[2024-03-18] MEDS: HYDROmorphone HCl 0.5 MG/0.5 ML SYRINGE 0.25 MG IVPUSH ×2 (05:11→20:09)
[2024-03-18] MEDS: Lactated Ringers 1,000 ML 100 ML IVCONT ×2 (05:14→17:17)
[2024-03-18] MEDS: ondansetron HCL 4 MG/2 ML VIAL IVPUSH (08:27)
[2024-03-18] MEDS: Docusate Sodium 100 MG CAPSULE PO ×2 (08:30→20:05)
[2024-03-18] MEDS: ALPRAZolam 0.25 MG TABLET PO (08:30)
[2024-03-18] MEDS: Acetaminophen 325 MG TABLET 650 MG PO (08:30)
[2024-03-18 08:40] LABS: MANUAL DIFF FLAG NO
[2024-03-18 09:05] LABS: Anion Gap 15 (12-20); Blood Urea Nitrogen 13 mg/dL (9-16); Calcium 9.2 mg/dL (8.4-10.2); Carbon Dioxide 23 mmol/L (22-29); Chloride 106 mmol/L (96-108); Creatinine Clr Calc Pharmacy 110.5; Estimated Glomerular Filt Rate > 60; Glucose Fasting 99 mg/dL (60-99); Sodium 140 mmol/L (135-145)
[2024-03-18 09:06] LABS: Basophils Percent Auto 0.5 % (0-2); Eosinophils Absolute Auto 0.1 X10*3/uL (0.0-0.4); Eosinophils Percent Auto 1.4 % (0-4); Hematocrit 40.2 % (42.0-52.0); Hemoglobin 14.2 g/dl (14.0-18.0); Imm Gran Abs Auto 0.04 X10*3/uL (0.00-0.03); Imm Gran Pct Auto 0.5 % (0.0-0.4); Lymphocytes Absolute Auto 1.7 X10*3/uL (1.2-4.9); Lymphocytes Percent Auto 19.6 % (20-40); Mean Corpuscular HGB Conc 35.3 g/dl (31.0-36.0); Mean Corpuscular Hemoglobin 32.3 pg (27.0-33.0); Mean Corpuscular Volume 91.6 fL (80.0-98.0); Monocytes Percent Auto 11.2 % (2-11); Neutrophils Absolute Auto 5.9 x10*3/uL (2.0-8.3); Neutrophils Percent Auto 66.8 % (45-73); Platelet Count 217 X10*3/uL (160-400); Red Blood Count 4.39 X10*6/uL (4.60-5.80); Red Cell Distribution Width 12.1 % (11.0-16.0); White Blood Count 8.7 X10*3/uL (4.8-10.8)
--- NOTE | 2024-03-18 14:29 | PC.NURSE ---
report given to madi briggs rn at this time. aware of all that needs to be signed on preop record and that 24 hour needs to be completed.
--- NOTE | 2024-03-18 15:16 | MHC.SHP ---
Pre-Procedural Eval Section A - 24 Hr Update-Section A only Date of Service: 03/18/24 The patient is an INPATIENT: No Changes since office visit: No Cold of Flu in the past 2 weeks, No New Medical Problems, No Changes in Medication and No Patient answered all questions The patient has been examined within 24 hours of the surgical procedure. The History & Physical has been completed within 30 days and I have reviewed it.: Yes Section B - Complete if H&P > 30 days Chief Complaint: Rt Olecranon fracture Allergies: Allergies Allergy/AdvReac Type Severity Reaction Status Date / Time acetaminophen [From PERCOCET] Allergy Mild VOMITING Verified 03/18/24 13:56 From PERCOCET Allergy Mild VOMITING Uncoded 03/18/24 13:56 Plan I have reviewed the history and physical and performed a pertinent physical examination on my patient. No changes have occurred unless specified. Time Spent With Patient Time: Total time managing care of this patient today ____ minutes.
--- NOTE | 2024-03-18 16:19 | P.CONAN_ITS ---
HPI - Anesthesia Eval Consult details Narrative: 63-year-old male presenting with olecranon fracture for elbow ORIF PMF Active Problems Active Problems: All Active Problems (Updated 03/17/24 @ 10:03 by Idalia Lassiter PA-C) Closed fracture of right olecranon process (Acute) Fracture of olecranon, right, open (Acute) Past Medical History Medical History Prostate cancer Depression Anxiety GERD (gastroesophageal reflux disease) Family History Family history of problems with anesthesia: No Surgical History Surgical History (Updated 03/18/24 @ 14:10 by Shima Washington RN) Hx of colonoscopy H/O prostatectomy History of Problems with Anesthesia: No Social History Social History Household Members: Significant Other Housing: House Do you presently have visiting nurse or other home services: No Comment: patient rings appropriately Patient Tobacco Use Status: Former Tobacco user Smoked in Last 30 Days: No Use of substances other than those prescribed or required for medical reasons: No Currently Displaying Signs/Symptoms of Drug Intoxication Withdrawal: No Have you been hit, kicked, punched, or otherwise hurt by someone within the past year? If so, by whom?: No Do you feel safe in your current relationship?: Yes Is there a partner from a previous relationship who is making you feel unsafe now?: No Are you made to feel afraid or neglected: No Are you DNR?: No Advance Directives: No Advance Directives Information Provided: Yes Do you have a plan to hurt others: No Plan Recently lost weight without trying: No Nutrition Risks: No Nutritional Risk service: No Meds Allergies Allergy/AdvReac Type Severity Reaction Status Date / Time acetaminophen [From PERCOCET] Allergy Mild VOMITING Verified 03/18/24 13:56 From PERCOCET Allergy Mild VOMITING Uncoded 03/18/24 13:56 Active Medications: Current Medications Acetaminophen (Acetaminophen 325 Mg Tablet) 650 mg PO Q6H PRN PRN Reason: Pain, Mild (Pain Scale 1-3), fever or headache Last Admin: 03/18/24 08:30 Dose: 650 mg Alprazolam (Alprazolam 0.25 Mg Tablet) 0.25 mg PO DAILY LOY Last Admin: 03/18/24 08:30 Dose: 0.25 mg Atorvastatin Calcium (Atorvastatin Calcium 10 Mg Tablet) 10 mg PO DAILY [facility] Last Admin: 03/18/24 08:30 Dose: Not Given Docusate Sodium (Docusate Sodium 100 Mg Capsule) 100 mg PO BID [facility] Last Admin: 03/18/24 08:30 Dose: 100 mg Hydromorphone HCl (Hydromorphone Hcl 0.5 Mg/0.5 Ml Syringe) 0.25 mg IVPUSH Q4H PRN; Protocol PRN Reason: Pain, Severe (Pain Scale 7-10) Last Admin: 03/18/24 05:11 Dose: 0.25 mg Lactated Ringer's (Lr) 1,000 mls @ 100 mls/hr IVCONT .Q10H [facility] Last Admin: 03/18/24 15:25 Dose: Not Given Non-Formulary Medication (Escitalopram Oxalate) 4 mg PO DAILY [facility] Non-Formulary Medication (Potassium Citrate) 20 meq PO DAILY [facility] Omeprazole (Omeprazole 40 Mg Capsule.Dr) 40 mg PO DAILY@0630 [facility] Last Admin: 03/18/24 05:16 Dose: Not Given Ondansetron HCl (Ondansetron Hcl 4 Mg/2 Ml Vial) 4 mg IVPUSH Q8H PRN PRN Reason: Nausea and Vomiting Last Admin: 03/18/24 08:27 Dose: 4 mg Oxycodone HCl (Oxycodone Hcl Immed Release 5 Mg Tablet) 5 mg PO Q4H PRN PRN Reason: Pain, Moderate(Pain Scale 4-6) Last Admin: 03/17/24 12:20 Dose: 5 mg Sodium Chloride (0.9 % Sodium Chloride Flush 3 Ml Syringe) 3 ml IVFLUSH QSHIFT [facility] Last Admin: 03/18/24 15:26 Dose: Not Given Trazodone HCl (Trazodone Hcl 50 Mg Tablet) 50 mg PO BEDTIME [facility] Last Admin: 03/17/24 20:54 Dose: 50 mg Vitamin D (Cholecalciferol (Vitamin D3) 25 Mcg Tablet) 25 mcg PO DAILY [facility] Last Admin: 03/18/24 08:31 Dose: Not Given Home Medications ?Medication ?Instructions ?Recorded ?Confirmed ?Last Taken ?Type Lactobacillus rhamnosus GG 10 1 cap PO DAILY 03/17/24 03/17/24 03/16/24 History billion cell capsule (Culturelle) alprazolam 0.25 mg tablet 0.25 mg PO DAILY 03/17/24 03/17/24 03/16/24 History atorvastatin 10 mg tablet 10 mg PO DAILY 03/17/24 03/17/24 03/16/24 History cholecalciferol (vitamin D3) 25 25 mcg PO DAILY 03/17/24 03/17/24 03/16/24 History mcg (1,000 unit) tablet (Vitamin D3) escitalopram oxalate 5 mg/5 mL 4 mg PO DAILY 03/17/24 03/17/24 03/16/24 History oral solution gpaqj-0x-jff-epa-fish oil 120 1 cap PO DAILY 03/17/24 03/17/24 03/16/24 History mg-180 mg-60 mg-1,200 mg capsule, DR (Fish Oil) omeprazole 40 mg capsule,delayed 40 mg PO DAILY 03/17/24 03/17/24 03/16/24 History release potassium citrate 10 mEq (1,080 20 meq PO DAILY 03/17/24 03/17/24 03/16/24 History mg) tablet,extended release tadalafil 5 mg tablet 5 mg PO DAILY PRN Erectile 03/17/24 03/17/24 Unknown History Dysfunction trazodone 50 mg tablet 50 mg PO BEDTIME 03/17/24 03/17/24 03/16/24 History Exam Height,Weight and Vital Signs: Height 6 ft Weight 170 lb 13.732 oz Last Vital Signs Temp 98.3 F 03/18/24 14:07 Pulse 60 03/18/24 14:07 Resp 18 03/18/24 14:07 BP 159/90 H 03/18/24 14:07 Pulse Ox 97 03/18/24 14:07 O2 Del Method Room Air 03/18/24 14:07 Pertinent Lab Results Pertinent Lab Results: Laboratory Tests 03/16/24 03/17/24 03/18/24 19:51 05:06 08:21 WBC 14.7 H 12.2 H 8.7 RBC 4.38 L 4.30 L 4.39 L Hgb 14.1 13.9 L 14.2 Hct 39.1 L 38.9 L 40.2 L MCV 89.3 90.5 91.6 MCH 32.2 32.3 32.3 MCHC 36.1 H 35.7 35.3 RDW 11.9 12.1 12.1 Plt Count 258 226 217 MPV 9.4 9.5 10.0 Immature Gran % (Auto) 0.4 0.3 0.5 H Neut % (Auto) 78.8 H 71.4 66.8 Lymph % (Auto) 10.9 L 16.1 L 19.6 L [place] % (Auto) 8.7 11.2 H 11.2 H Eos % (Auto) 0.9 0.7 1.4 Baso % (Auto) 0.3 0.3 0.5 Lymph # (Auto) 1.6 2.0 1.7 [place] # (Auto) 1.3 H 1.4 H 1.0 Eos # (Auto) 0.1 0.1 0.1 Baso # (Auto) 0.0 0.0 0.0 Abs Immat Gran (auto) 0.06 H 0.04 H 0.04 H Absolute Neuts (auto) 11.6 H 8.7 H 5.9 Absolute Nucleated RBC 0.000 0.000 0.000 Nucleated RBC % (auto) 0.0 0.0 0.0 Sodium 140 140 140 Potassium 3.8 4.1 4.0 Chloride 103 105 106 Carbon Dioxide 28 27 23 Anion Gap 13 12 15 BUN 24 H 21 H 13 Creatinine 0.88 0.82 0.75 Estim Creat Clear Calc 90.9 97.6 110.5 Estimated GFR > 60 > 60 > 60 Random Glucose 99 Fasting Glucose 100 H 99 Calcium 9.6 9.3 9.2 Magnesium 2.0 Total Bilirubin 0.6 AST 19 ALT 18 Alkaline Phosphatase 43 Total Protein 6.3 L Albumin 4.0 Airway Mallampati Class: I TM Dist: >3cm Neck ROM: Full Loose/Missing/Broken Teeth: No Assessment and Plan Assessment Anesthesia Assessment: Anesthesia Plan Discussed and Chart Reviewed Final Anesthetic Review Family History of Problems with Anesthesia: No History of Problems with Anesthesia: No NPO: Yes ASA Class: II Final Preanesthetic Review: No Changes in Pt Med Stat, Meds/Allgs Chart Reviewed, Consent Obtained/Reviewed and Anes Risks/Benef Reviewed Patient Risk: Low Procedure Risk: Low Anesthetic Plan Anesthetic Plan: GA and Regional Block Disposition: Standard PACU
--- NOTE | 2024-03-18 16:38 | P.BOP_ITS ---
Brief Operative Note Date of Service: 03/18/24 Pre-op diagnosis: right olecranon fracture Post-op diagnosis: same Procedure: ORIF right olecranon Implants: 18 g cerclage 1.6 mm k wire x 2 Surgeon: Robert Ng MD Anesthesia: GLMA and regional Was an Business Systems Administrator used for this Procedure?: Yes Business Systems Administrator: Idalia Lassiter Estimated blood loss (mL): 50 IV fluids (mL): 800 Pathology: none sent Condition: stable Disposition: PACU
[2024-03-18] MEDS: droPERidol 5 MG/2 ML VIAL 0.625 MG IVPUSH (17:01)
[2024-03-18] MEDS: oxyCODONE HCl Immed Release 5 MG TABLET PO (18:02)
[2024-03-18] MEDS: traZODone HCL 50 MG TABLET PO (20:05)
[2024-03-18] MEDS: 0.9 % Sodium Chloride Flush 3 ML SYRINGE IVFLUSH (20:10)
[2024-03-18] MEDS: ceFAZolin Sodium/Dextrose,Iso 2 GM/50 ML PIGGYBACK IV (23:07)
[2024-03-19 03:21] VITALS: BP 122/80; PULSE 61; RESP 14; TEMP 36.1; O2SAT 97
[2024-03-19] MEDS: HYDROmorphone HCl 0.5 MG/0.5 ML SYRINGE 0.25 MG IVPUSH (04:49)
[2024-03-19] MEDS: Omeprazole 40 MG CAPSULE.DR PO (05:33)
[2024-03-19] MEDS: ceFAZolin Sodium/Dextrose,Iso 2 GM/50 ML PIGGYBACK IV (07:27)
[2024-03-19] MEDS: ALPRAZolam 0.25 MG TABLET PO (07:28)
[2024-03-19] MEDS: Cholecalciferol (Vitamin D3) 25 MCG TABLET PO (07:28)
[2024-03-19] MEDS: Atorvastatin Calcium 10 MG TABLET PO (07:28)
[2024-03-19] MEDS: Docusate Sodium 100 MG CAPSULE PO (07:28)
[2024-03-19] MEDS: 0.9 % Sodium Chloride Flush 3 ML SYRINGE IVFLUSH (07:30)
[2024-03-19 07:31] LABS: Basophils Percent Auto 0.1 % (0-2); Hematocrit 42.6 % (42.0-52.0); Hemoglobin 15.4 g/dl (14.0-18.0); Imm Gran Pct Auto 0.7 % (0.0-0.4); Lymphocytes Absolute Auto 1.2 X10*3/uL (1.2-4.9); Lymphocytes Percent Auto 8.7 % (20-40); MANUAL DIFF FLAG SCAN; Mean Corpuscular HGB Conc 36.2 g/dl (31.0-36.0); Mean Corpuscular Hemoglobin 32.4 pg (27.0-33.0); Mean Corpuscular Volume 89.5 fL (80.0-98.0); Monocytes Absolute Auto 1.3 X10*3/uL (0.1-1.2); Monocytes Percent Auto 9.2 % (2-11); Neutrophils Absolute Auto 11.2 x10*3/uL (2.0-8.3); Neutrophils Percent Auto 81.3 % (45-73); PLT CLUMP 1; Red Blood Count 4.76 X10*6/uL (4.60-5.80); Red Cell Distribution Width 11.9 % (11.0-16.0); SCAN SMEAR FLAG 1
[2024-03-19 07:46] VITALS: BP 142/92; PULSE 95; RESP 16; TEMP 36.8; O2SAT 96
[2024-03-19 08:39] LABS: Anion Gap 16 (12-20); Blood Urea Nitrogen 18 mg/dL (9-16); Calcium 9.5 mg/dL (8.4-10.2); Carbon Dioxide 24 mmol/L (22-29); Chloride 104 mmol/L (96-108); Creatinine Clr Calc Pharmacy 102.3; Estimated Glomerular Filt Rate > 60; Glucose Fasting 119 mg/dL (60-99); Potassium 4.5 mmol/L (3.3-5.1); Sodium 139 mmol/L (135-145)
[2024-03-19 08:47] LABS: Mean Platelet Volume 10.8 fL (9.4-12.4); Platelet Count 252 X10*3/uL (160-400); White Blood Count 13.7 X10*3/uL (4.8-10.8)
[2024-03-19 08:48] LABS: SLIDE REVIEW VERIFIED
[2024-03-19] MEDS: Acetaminophen 325 MG TABLET 650 MG PO (09:17)
[2024-03-19] MEDS: oxyCODONE HCl Immed Release 5 MG TABLET PO (09:18)
--- NOTE | 2024-03-19 10:29 | P.DS_ITS ---
DS: Providers Provider Date of Service: 03/19/24 Date of admission: 03/16/24 22:00 Primary care physician: Lanre Pratt MD Consults: 03/16/24 21:59 Consult to Hospitalist Routine Comment: Consulting Provider: Hospitalist Reason For Exam: pre op clearance DS: Diagnosis Discharge Diagnosis (1) Closed fracture of right olecranon process: Status: Acute DS: Summary Hospital Course Hospital Course: The patient underwent a successful ORIF right olecranon fracture on 03/19/24, was transferred to PACU and then to the floor to recover. During their stay, their vitals were stable, afebrile at 98.2. Labs were unremarkable, H/H 15.4/42.6. Prior to discharge, his dressing was clean dry and intact, new Aquacel dressing applied. Any concerns with the dressing, please contact orthopedic office. No showering. The plan is to be discharged home Time Attestation Discharge Coordination Time (in mins): 30 Quality: Safe Use of Opioids Does Pt have an Active Cancer Diagnosis on the Problem List?: No Quality: Stroke Does the patient have a stroke diagnosis?: No Physical Exam Vital Signs: Vital Signs: Last Vital Signs Temp 98.2 F 03/19/24 07:46 Pulse 95 03/19/24 07:46 Resp 16 03/19/24 07:46 BP 142/92 H 03/19/24 07:46 Pulse Ox 96 03/19/24 07:46 O2 Del Method Room Air 03/19/24 07:46 BMI result Body Mass Index 23.2 DS: Data Data Completed and Pending Labs on day of discharge: Laboratory Results - last 24 hr 03/19/24 03/19/24 06:15 08:04 WBC 13.7 H RBC 4.76 Hgb 15.4 Hct 42.6 MCV 89.5 MCH 32.4 MCHC 36.2 H RDW 11.9 Plt Count 252 MPV 10.8 Immature Gran % (Auto) 0.7 H Neut % (Auto) 81.3 H Lymph % (Auto) 8.7 L [place] % (Auto) 9.2 Eos % (Auto) 0.0 Baso % (Auto) 0.1 Lymph # (Auto) 1.2 [place] # (Auto) 1.3 H Eos # (Auto) 0.0 Baso # (Auto) 0.0 Abs Immat Gran (auto) 0.10 H Absolute Neuts (auto) 11.2 H Absolute Nucleated RBC 0.000 Nucleated RBC % (auto) 0.0 Smear Tech's Comments VERIFIED Sodium 139 Potassium 4.5 Chloride 104 Carbon Dioxide 24 Anion Gap 16 BUN 18 H Creatinine 0.81 Estim Creat Clear Calc 102.3 Estimated GFR > 60 Fasting Glucose 119 H Calcium 9.5 Discharge Plan Discharge Anticipated Discharge Date/Time: 03/19/24 10:27 Patient Disposition: Home, Self-Care Discharge Diagnosis: ORIF Right elbow Referrals: Masha Hester PA-C [Physician [facility]] - 1 Week (04/01/24 10:45 with Masha ) Discharge Medications: New docusate sodium 100 mg Capsule 100 mg PO BID 7 Days Qty: 14 0RF acetaminophen 325 mg Tablet 650 mg PO Q6H PRN (Reason: Pain, Mild (Pain Scale 1-3), fever or headache) 30 Days Qty: 240 0RF oxycodone 5 mg Tablet 5 mg PO Q4H PRN (Reason: Pain, Moderate(Pain Scale 4-6)) 7 Days Qty: 42 0RF Rx Instructions: Partial Fill upon patient request. Continued trazodone 50 mg tablet 50 mg PO BEDTIME atorvastatin 10 mg tablet 10 mg PO DAILY omeprazole 40 mg capsule,delayed release(DR/EC) 40 mg PO DAILY alprazolam 0.25 mg tablet 0.25 mg PO DAILY potassium citrate 10 mEq (1,080 mg) tablet extended release 20 meq PO DAILY escitalopram oxalate 5 mg/5 mL solution 4 mg PO DAILY tadalafil 5 mg tablet 5 mg PO DAILY MDD 20 MG PRN (Reason: Erectile Dysfunction) Culturelle 10 billion cell Capsule 1 cap PO DAILY cholecalciferol (vitamin D3) [Vitamin D3] 25 mcg (1,000 unit) Tablet 25 mcg PO DAILY Fish Oil 120 mg-180 mg- 60 mg-1,200 mg Capsule,Delayed Release(Dr/Ec) 1 cap PO DAILY Discharge Orders: Discharge Order (Routine); Ordered 03/19/24 Ordered By: Idalia Lassiter Diet: Regular diet Activity on Discharge: Use Splints or Immobilizers Stand Alone Forms: Patient Portal Discharge page Print Language: Tristanian Activity Restrictions/Additional Instructions: * Keep splint clean, dry and intact * No lifting, carrying, pushing or pulling with right arm * Elevate the arm on pillows when resting and sleeping * Perform Hand and wrist ROM-making and fist and opening fingers * Call the office if there are any questions or concerns. If splint is too tight or too loose. If it becomes saturated. * Follow up with our office in 10 days Care Plan Goals: Restore function of joint Health Concerns: None Plan of Treatment: Physical Therapy Pain management DVT prophylaxis Assessment: as above
--- NOTE | 2024-03-19 10:44 | MHC.CM.PN ---
DP: PT HAS BEEN MEDICALLY CLEARED FOR DC HOME, NO SERVICES. SP[facility]SE WILL TRANSPORT
--- NOTE | 2024-03-19 14:48 | HO.POSTANES ---
Post Anesthesia Evaluation Post Anesthesia Evaluation Date of Service: 03/19/24 Vital Signs: Vital Signs Temp Pulse Resp BP Pulse Ox O2 Del Method 03/19/24 07:46 98.2 F 95 16 142/92 H 96 Room Air 03/19/24 03:21 97 F 61 14 122/80 97 Room Air Comments: called and left message unable to talk to
--- NOTE | 2024-04-08 12:21 | P.OP_ITS ---
Operative Note Operative Note Date of Service: 03/18/24 Narrative: Date of Service: 03/18/24 Pre-op diagnosis: Right olecranon fracture Post-op diagnosis: same Procedure: ORIF right olecranon Implants: 18 g cerclage 1.6 mm k wire x 2 Surgeon: Robert Ng MD Anesthesia: GLMA and regional Was an Flatcar Whacker used for this Procedure?: Yes Flatcar Whacker: Idalia Lassiter Estimated blood loss (mL): 50 IV fluids (mL): 800 Pathology: none sent Condition: stable Disposition: PACU Patient was brought to the operating room and placed supine on the surgical table. She was prepped and draped in standard sterile fashion and a time out was called to identify proper site, proper procedure and IV antibiotics per weight were administered. I began by making a posterior incision over the olecranon. Full thickness flaps were taken down to bone and the fracture was identified. The bone was irrigated and cleaned and a sharp tenaculum was used to reduce the fracture. I then placed two K-Wires from posterior to anterior and proximal to distal. Fluroscopy was used to confirm location and I was satisfied with the reduction and hardware alignement. I then drilled a small holde through the ulna distally and then passed an 18g cerclage wire through this and then, in a figure of eight configuration around the previously placed k wires. I then tightened the cerclage by twisting. Once I was satisfied with the stability of the construct I bent, cut and buried the k wires and the twisted cerclage. I copiously irrigated and then closed the skin with nylon. Sterile dressing were applied. Patient was awakened from anesthesia and brtought to the recovery room in stable condition. There were no known complications.
== END 2024-03-19 10:47 | disposition home or self-care (01) | DRG 512 ==
LOC: HO.ED 21:29 → HO.EDOVER 22:09 → HO.S3 03-17 05:19
PROVIDERS: Orthopaedic Surgery; Physician Assistant Medical; Admitting Provider Physician Assistant; Emergency Provider Emergency Medicine; PCP Internal Medicine; Visit Provider Physician Assistant
PROC: 0PSK04Z Reposition Right Ulna with Internal Fixation Device, Open Approach (ICD-10-PCS; CPT 24685; principal; 2024-03-18 14:40)
DX: S52.021A Displaced fracture of olecranon process without intraarticular extension of right ulna, initial encounter for closed fracture (principal); W11.XXXA Fall on and from ladder, initial encounter; F43.10 Post-traumatic stress disorder, unspecified; G89.18 Other acute postprocedural pain; Y93.H9 Activity, other involving exterior property and land maintenance, building and construction; Y92.007 Garden or yard of unspecified non-institutional (private) residence as the place of occurrence of the external cause; Z87.820 Personal history of traumatic brain injury; Z87.891 Personal history of nicotine dependence; K21.9 Gastro-esophageal reflux disease without esophagitis; Z85.46 Personal history of malignant neoplasm of prostate; Z90.79 Acquired absence of other genital organ(s); Z79.899 Other long term (current) drug therapy
CPT/HCPCS: 12001; 24685; 36415; 73080; 73110; 80048; 80053; 83735; 85025; 93005; 97165; 99221; 99285; J0665; J0690; J1100; J1170; J1790; J2060; J2250; J2270; J2405; J2704; J2795; J7120

== ENCOUNTER → 2024-03-16 19:40 | Outpatient (BNV) | payer OTHER, SELFPAY | PROVIDERS: Emergency Provider Emergency Medicine; PCP Internal Medicine; Visit Provider Physician Assistant | DX: S52.021A Displaced fracture of olecranon process without intraarticular extension of right ulna, initial encounter for closed fracture (principal) | CPT/HCPCS: 24685; 99024; 99223; 99499 ==

== ENCOUNTER 2024-03-16 22:00 | Outpatient (BNV) | payer OTHER, SELFPAY | END 2024-03-17 13:15 | PROVIDERS: Admitting Provider Physician Assistant; Emergency Provider Emergency Medicine; PCP Internal Medicine; Visit Provider Internal Medicine | DX: R94.31 Abnormal electrocardiogram [ECG] [EKG] (principal) | CPT/HCPCS: 93010 ==

== ENCOUNTER → 2024-03-16 22:00 | Outpatient (BNV) | payer OTHER, SELFPAY | PROVIDERS: Admitting Provider Physician Assistant; Emergency Provider Emergency Medicine; PCP Internal Medicine; Visit Provider Physician Assistant | DX: S52.021A Displaced fracture of olecranon process without intraarticular extension of right ulna, initial encounter for closed fracture (principal) | CPT/HCPCS: 99222 ==

== ENCOUNTER 2024-04-01 07:49 | Outpatient (REF) | payer OTHER, SELFPAY ==
--- NOTE | ~2024-04-01 | XR_ITS ---
EXAMINATION: XR ELBOW, RIGHT CLINICAL INFORMATION: Pain in unspecified elbow. COMPARISON: March 16, 2024. TECHNIQUE: AP, lateral, and oblique views of the right elbow. FINDINGS: Large joint effusion soft tissue swelling. Status post interval ORIF of previously identified fracture through the olecranon with K wires and cerclage wires with improved alignment of fracture fragments. Hardware appears intact. XR/XR elbow RT min 3V IMPRESSION: 1. Status post ORIF of previously identified fracture through the olecranon with K wires and cerclage wires with improved alignment of fracture fragments. Hardware appears intact. 2. Large joint effusion soft tissue swelling.
== END 2024-04-01 07:50 | disposition home or self-care (01) ==
LOC: HO.HOSX 07:49
PROVIDERS: Visit Provider Physician Assistant
DX: M25.521 Pain in right elbow (principal); S42.401D Unspecified fracture of lower end of right humerus, subsequent encounter for fracture with routine healing; M25.421 Effusion, right elbow
CPT/HCPCS: 73080

== ENCOUNTER 2024-04-01 10:31 | Outpatient (AMB) | payer OTHER, SELFPAY ==
--- NOTE | 2024-04-01 10:58 | MHC.OFFVIS ---
Vital Signs 04/01/24 11:00 Height 6 ft Weight 160 lb BMI 21.7 Intake Visit Reasons: post op appt s/p ORIF Rt elbow 03/18/24 Intake Note: Hebert is a 63 year old male who presents today for a post op appointment s/p ORIF Rt elbow 03/18/24. Patient reports he is doing well, states his current pain level is a 5.5 out of 10. Allergies acetaminophen [From PERCOCET] Allergy (Mild, Verified 04/01/24 11:01) VOMITING From PERCOCET Allergy (Mild, Uncoded 04/01/24 11:01) VOMITING HPI HPI post op appt s/p ORIF Rt elbow 03/18/24: Details: 63-year-old male who presents in the office today 2 weeks status post right olecranon ORIF, which was performed on 03/18/[address] Ng.? ? While in the office today, the patient reports he is doing well. He confirms his pain is currently 5.5/10.? PFSH Medical History (Updated 03/27/24 @ 00:02 by Ifeoma Ontiveros) Prostate cancer Depression Anxiety GERD (gastroesophageal reflux disease) Surgical History Hx of colonoscopy H/O prostatectomy Social History Household Members: Significant Other Housing: House Do you presently have visiting nurse or other home services: No Comment: patient rings appropriately Patient Tobacco Use Status: Former Tobacco user service: No Review of Systems Const All systems reviewed & are unremarkable except as noted in HPI and below Physical Exam Vital Signs: BMI result Body Mass Index 21.7 Const General: cooperative, healthy appearing and no acute distress Resp Effort & Inspection: normal respiratory effort and able to speak in complete sentences Cardio Rate: regular rate Peripheral pulses: Peripheral pulses 2+ throughout GI Palpation (GI): Soft to palpation Skin Lesions: no lesions Rashes: no rashes Extrem Other: Right elbow: Incision site is clean, dry, and intact. Sutures are intact. No surrounding erythema or drainage. No signs of infection. Minimal flexion and extension, pronation and supination due to pain. NVI.? Assessment & Plan Assessment & Plan (1) Closed fracture of right olecranon process: Code(s): S52.021A - Displaced fracture of olecranon process without intraarticular extension of right ulna, initial encounter for closed fracture Category: Medical Qualifiers: Encounter type: initial encounter Qualified Code(s): S52.021A - Displaced fracture of olecranon process without intraarticular extension of right ulna, initial encounter for closed fracture Plan Mr. Owens is a 63-year-old male who presents in the office today 2 weeks status post right olecranon ORIF, which was performed on 03/18/[address] Ng.? ? While in the office today, the patient reports he is doing well. He confirms his pain is currently 5.5/10.? ? Sutures were removed and steri-stripes were applied. The patient was placed in a ROM elbow brace, off the shelf, with ROM of 30-100 degrees. A refill for oxycodone 5 mg PO Q4H PRN for pain was sent to the pharmacy. A referral for occupational therapy was placed today. Follow-up will be in 4 weeks, or sooner if needed. ? ? X-rays of the right elbow which were obtained while in the office today and were reviewed by me, Masha Hester PA-C, revealed intact orthopedic hardware. ? Orders: Orders XR elbow RT min 3V Today M25.529 - Pain in unspecified elbow OT Evaluation and Treatment Today S52.021B - Displaced fracture of olecranon process without intraarticular extension of right ulna, initial encounter for open fracture type I or II Medications: Refilled oxycodone Partial Fill upon patient request. 5 mg PO Q4H PRN 42 tabs 0RF Pain, Moderate(Pain Scale 4-6) 7 days Coding Level of Care Code Global (67544) Diagnoses Closed fracture of olecranon process of right ulna, initial encounter S52.021A Encounter type: initial encounter
[2024-04-01 11:00] VITALS: BMI 21.7
== END 2024-04-01 13:24 | disposition home or self-care (01) ==
PROVIDERS: PCP Internal Medicine; Visit Provider Physician Assistant
DX: S52.021A Displaced fracture of olecranon process without intraarticular extension of right ulna, initial encounter for closed fracture (principal)
CPT/HCPCS: 99024

== ENCOUNTER 2024-04-04 09:54 | Outpatient (RCR) | payer OTHER, SELFPAY ==
--- NOTE | 2024-04-04 11:50 | MHC.OT.EP ---
[address] [phone] Occupational Therapy Plan of Care Patient Name: Hebert Owens Date of Evaluation: 04/04/24 Diagnosis: Right Olecronon ORIF Pain Location: Low pain at rest, right posterior elbow, sharp pain in shoulder at times Pain increases at times through out the day (bending forward, laying down) Pain Score: 5 Pain Scale Used: Numeric (0 - 10) Aggravating Factors: General movement Alleviating Factors: Oxycodone 2x/day PRN, ice to right hand Assessment: 63 yo male fell off his ladder cleaning the gutter, resulting in right olecronon fracture. He underwent surgical repair w/ ORIF 03/18/24 w/ Dr Ng and seen initially by inpatient OT. He has since been seen for post-op visit w/ removal of sutures and pt placed in elbow brace locked 30-100 and referred to outpatient OT. He presents today w/ right elbow brace locked 100-30, clipped in for UE support but reports at home he unclips and allows to rest arm down, although he has not yet removed splint. Moderate edema in elbow, steri strips intact. Hand and wrist range grossly WFL, decreased end range. Forearm about 65/65 w/ smooth range, elbow is moved gently within available precaution range, but requires cues for deep breathing. We will continue course of OT w/ olecronon repair protocol w/ goal of full functional range of motion, strength and participation in daily activities. *On eval, pt w/ episode of nausea, vomiting, confusion and LOC. Rapid Response called to OT department and pt brought to ED for further work-up. Frequency and Duration: The patient will be seen 2x/wk 8 weeks Short Term Goals: Ind w/ don/doff of elbow brace Pt to demo light use of right hand w/ grooming tasks (toothbrush set-up, etc) Pt to demo self ROM to 30/100 Ind w/ scar and edema management techniques after steri strips are off <2/10 resting pain <4/10 pain w/ ROM exercises Ind w/ use of ice Intermediate Goals: Right elbow flex >140 Right elbow ext <10 Right gross grasp >50lb QuickDASH score <35 pts Pt to demo ease w/ bimanual activities (laundry, cooking, gardening) Treatment Plan: Therapeutic Exercise Therapeutic Activity Home Exercise Program Splinting Neuro Re-ed Patient Education Desensitization/Sensory Re-ed Edema Control ADL Training Paraffin MHP Cold Packs Joint Mobilization Soft Tissue Mobilization Kinesiotaping Electronically Signed By: Eugenia Celeste OTR/L CHT Please Sign and return to therapist. Thank you once again for your referral.
== END 2024-05-08 13:55 | disposition home or self-care (01) ==
LOC: HO.OT 09:54
PROVIDERS: PCP Internal Medicine; Visit Provider Physician Assistant
DX: S52.021B Displaced fracture of olecranon process without intraarticular extension of right ulna, initial encounter for open fracture type I or II (principal)
CPT/HCPCS: 97110; 97167

== ENCOUNTER 2024-04-04 10:55 | Inpatient (IN) | payer OTHER, SELFPAY ==
--- NOTE | ~2024-04-04 | CT_ITS ---
EXAMINATION: CT ANGIOGRAM OF THE CHEST WITH AND WITHOUT CONTRAST (CT PULMONARY ANGIOGRAM FOR PE) CLINICAL INFORMATION: Reason for Exam syncope, SOB COMPARISON: None available. TECHNIQUE: Prior to contrast administration, noncontrast localization images were obtained. Subsequently, multidetector volumetric imaging was performed from the thoracic inlet to below the diaphragms following the administration of 65 mL Omnipaque 350 intravenous contrast. No contrast reaction reported Sagittal, coronal, and MIP oblique sagittal reformatted images were obtained on the CT workstation, uploaded to PACS, and reviewed. This CT examination was performed using dose optimization techniques as appropriate, variously including the following: *Automated exposure control *Adjustment of mA and/or kV according to patient size (this includes techniques or standardized protocols for targeted exams where dose is matched to indication/reason for exam; i.e. extremities or head) *Use of iterative reconstruction technique Total exam dose-length product 328 mGy-cm FINDINGS: QUALITY OF STUDY/CONTRAST BOLUS: Satisfactory. PULMONARY ARTERIES: There are acute pulmonary emboli. There are segmental and subsegmental acute pulmonary emboli in branches of the right lower lobe pulmonary artery. There is a branching pulmonary embolus at the bifurcation of the segmental left lower lobe pulmonary arteries. There is no embolus in the main or right or left pulmonary arteries. THORACIC AORTA: No aneurysm. LUNG: There is no abnormality of the trachea or mainstem bronchi. There is no alveolar edema. No dense consolidation. No definite infarct. PLEURA: No pleural effusion or pneumothorax. MEDIASTINUM: There are no enlarged mediastinal or hilar lymph nodes. No suspicious abnormality esophagus. Tiny sliding-type hiatal hernia. No evidence of septal bowing or right heart strain. CORONARY ARTERY CALCIFICATION: None visualized on this study. CHEST WALL/AXILLA: No axillary or internal mammary lymphadenopathy. OSSEOUS STRUCTURES: No acute or suspicious osseous abnormality. UPPER ABDOMEN: Limited by positioning of the upper extremities. Probable renal cysts do not require specific imaging follow-up and are not completely included. No reflux of contrast into the hepatic veins to suggest elevated right heart pressures. CT/CT angio chest PE protocol IMPRESSION: Bilateral acute segmental and subsegmental lower lobe pulmonary emboli Dr. Alvarez rendered a preliminary interpretation at 1630 hours on 04/04/24 VTE: positive
--- NOTE | ~2024-04-04 | CT_ITS ---
EXAMINATION: CT HEAD WITHOUT CONTRAST CT CERVICAL SPINE WITHOUT CONTRAST CLINICAL INFORMATION: Headache. Syncopal episode. COMPARISON: None available. TECHNIQUE: Contiguous axial imaging was performed from the skull base to vertex without intravenous administration of contrast. Contiguous axial imaging was performed from the upper chest through the skull base without intravenous administration of contrast. Coronal and sagittal reformats were obtained at the acquisition workstation. This CT examination was performed using dose optimization techniques as appropriate, variously including the following: *Automated exposure control. *Adjustment of mA and/or kV according to patient size (this includes techniques or standardized protocols for targeted exams where dose is matched to indication/reason for exam; i.e. extremities or head). *Use of iterative reconstruction technique. DLP: 1104 mGy-cm FINDINGS: Head: There is no evidence of acute intracranial hemorrhage or edematous territorial infarction. Mcgregor-white matter differentiation is preserved. A few foci of hypoattenuation in the periventricular and deep white matter are consistent with mild microangiopathy. The ventricles are normal in morphology and size. No evidence for obstructive hydrocephalus. No abnormal mass effect or midline shift. No extra-axial fluid collections. Calcific atherosclerotic disease of the intracranial internal carotid and vertebral arteries. No hyperdense vessel sign. No acute soft tissue or osseous abnormalities. Mild mucosal thickening of the paranasal sinuses. The mastoid air cells and middle ear cavities are clear. Cervical Spine: The atlantooccipital and atlantoaxial articulations remain well aligned. Moderate degenerative arthropathy of the atlantodental articulation. Disc spacer in place at C5-C6. Straightening of the normal cervical lordosis. Otherwise, there is anatomic alignment of the vertebral bodies and posterior elements. No evidence of acute fracture or subluxation. The vertebral body heights are maintained. Advanced degenerative disc disease at C3-C4 and C6-C7. Mild to moderate degenerative disc disease at all additional levels. Facet and uncovertebral joint arthropathy leads to osseous encroachment on the neural foramina from C3-C7. There is no prevertebral soft tissue swelling. The thyroid gland and remaining cervical soft tissues are within normal limits. The lung apices demonstrate no abnormalities. CT/CT cervical spine wo IV con IMPRESSION: 1. No evidence of acute intracranial hemorrhage or edematous territorial infarction. Mild underlying microangiopathy. 2. No evidence of acute fracture or traumatic subluxation of the cervical spine. Moderate multilevel degenerative spondyloarthropathy of the cervical spine.
--- NOTE | ~2024-04-04 | US_ITS ---
EXAMINATION: US VENOUS ULTRASOUND WITH DOPPLER LOWER EXTREMITY, BILATERAL CLINICAL INFORMATION: Pulmonary embolism. Evaluate for DVT. COMPARISON: None available. TECHNIQUE: Ultrasound of the deep veins is performed from the hip to the calf with compression sonography and color and pulse Doppler assessment. Spectral analysis with color-flow imaging is performed. FINDINGS: RIGHT: There is normal venous compression and respiratory variation and augmented flow. The visualized common femoral vein, superficial femoral vein, profunda femoral vein, popliteal vein, and the trifurcation region shows no evidence of deep venous thrombosis. There is no significant popliteal fossa cyst. LEFT: There is normal venous compression and respiratory variation and augmented flow. The visualized common femoral vein, superficial femoral vein, profunda femoral vein, popliteal vein, and the trifurcation region shows no evidence of deep venous thrombosis. There is no significant popliteal fossa cyst. If the patient's symptoms persist, followup ultrasound in 5 days 7 days might be of value to exclude proximal propagation from a non-visualized calf vein. US/US venous duplex LE BI IMPRESSION: No DVT demonstrated in the right and left lower extremity.
[2024-04-04 10:58] VITALS: BP 120/81; PULSE 66; RESP 18; TEMP 36.6; O2SAT 100; BMI 21.0
--- NOTE | 2024-04-04 10:59 | ECG_ITS ---
Test Reason : syncope Blood Pressure : / mmHG Vent. Rate : 058 BPM Atrial Rate : 058 BPM P-R Int : 150 ms QRS Dur : 090 ms QT Int : 434 ms P-R-T Axes : 002 064 046 degrees QTc Int : 426 ms Unusual P axis, possible ectopic atrial bradycardia Otherwise normal ECG When compared with ECG of 17-MAR-2024 13:27, Criteria for Septal infarct are no longer Present Unusual P axis, possible ectopic atrial bradycardia has replaced Normal sinus rhythm Referred By: Vicky Lim Electronically Signed By:TIM AYALA MD
[2024-04-04 11:08] LABS: MANUAL DIFF FLAG NO
[2024-04-04 11:09] LABS: Basophils Absolute Auto 0.1 X10*3/uL (0.0-0.2); Basophils Percent Auto 0.5 % (0-2); Eosinophils Absolute Auto 0.2 X10*3/uL (0.0-0.4); Eosinophils Percent Auto 1.5 % (0-4); Hematocrit 43.7 % (42.0-52.0); Hemoglobin 15.4 g/dl (14.0-18.0); Imm Gran Abs Auto 0.04 X10*3/uL (0.00-0.03); Imm Gran Pct Auto 0.4 % (0.0-0.4); Lymphocytes Percent Auto 28.1 % (20-40); Mean Corpuscular HGB Conc 35.2 g/dl (31.0-36.0); Mean Corpuscular Hemoglobin 31.9 pg (27.0-33.0); Mean Corpuscular Volume 90.5 fL (80.0-98.0); Mean Platelet Volume 9.7 fL (9.4-12.4); Monocytes Absolute Auto 1.1 X10*3/uL (0.1-1.2); Monocytes Percent Auto 10.2 % (2-11); Neutrophils Absolute Auto 6.3 x10*3/uL (2.0-8.3); Neutrophils Percent Auto 59.3 % (45-73); Platelet Count 333 X10*3/uL (160-400); Red Blood Count 4.83 X10*6/uL (4.60-5.80); Red Cell Distribution Width 12.2 % (11.0-16.0); White Blood Count 10.6 X10*3/uL (4.8-10.8)
--- NOTE | 2024-04-04 11:17 | ED.DIZZY ---
HPI - Dizziness General Chief Complaint: Syncope Stated Complaint: dizzy Time Seen by Provider: 04/04/24 10:59 Source: patient and RN notes reviewed Mode of arrival: ambulatory Limitations: no limitations History of Present Illness ED Provider: Vicky Lim PA-C HPI Narrative: This is a 63-year-old male, with a history of anxiety, and recent ORIF of the right olecranon on 03/19/2024, who presents emergency department after witnessed syncopal episode. Pt was at physical therapy this afternoon and moved his right elbow and fainted. A rapid response was called to assist patient. There was no head strike. He had no chest pain or SOB prior to the episode. Upon my initial assessment, pt pale, diaphoretic, and reporting some shortness of breath and anxiety. He denies hx of similar symptoms in the past. He endorses a slight headache. No current CP, abdominal pain, changes in vision, nausea, vomiting or diarrhea. Denies any other complaints or concerns at this time. MD elicited complaint: near syncope Onset (ago): minute(s) Timing: sudden onset Description: lightheadedness and near-syncope Context: change in body position History of similar symptoms: No Exacerbating factors: nothing Relieving factors: nothing Associated symptoms: shortness of breath Related Data Home Medications ?Medication ?Instructions ?Recorded ?Confirmed Lactobacillus rhamnosus GG 10 1 cap PO DAILY 03/17/24 03/17/24 billion cell capsule (Culturelle) alprazolam 0.25 mg tablet 0.25 mg PO DAILY 03/17/24 03/17/24 atorvastatin 10 mg tablet 10 mg PO DAILY 03/17/24 03/17/24 cholecalciferol (vitamin D3) 25 25 mcg PO DAILY 03/17/24 03/17/24 mcg (1,000 unit) tablet (Vitamin D3) escitalopram oxalate 5 mg/5 mL 4 mg PO DAILY 03/17/24 03/17/24 oral solution [id number]-fish oil 120 1 cap PO DAILY 03/17/24 03/17/24 mg-180 mg-60 mg-1,200 mg capsule, DR (Fish Oil) omeprazole 40 mg capsule,delayed 40 mg PO DAILY 03/17/24 03/17/24 release potassium citrate 10 mEq (1,080 20 meq PO DAILY 03/17/24 03/17/24 mg) tablet,extended release tadalafil 5 mg tablet 5 mg PO DAILY PRN Erectile 03/17/24 03/17/24 Dysfunction trazodone 50 mg tablet 50 mg PO BEDTIME 03/17/24 03/17/24 Previous Rx's ?Medication ?Instructions ?Recorded acetaminophen 325 mg tablet 650 mg (2 x 325 mg) PO Q6H PRN 03/18/24 Pain, Mild (Pain Scale 1-3), fever or headache 30 days #240 tabs docusate sodium 100 mg capsule 100 mg PO BID 7 days #14 caps 03/18/24 oxycodone 5 mg tablet 5 mg PO Q4H PRN Pain, 04/01/24 Moderate(Pain Scale 4-6) 7 days #42 tabs Allergies Allergy/AdvReac Type Severity Reaction Status Date / Time acetaminophen [From PERCOCET] Allergy Mild VOMITING Verified 04/04/24 11:00 From PERCOCET Allergy Mild VOMITING Uncoded 04/01/24 11:01 Review of Systems Review of Systems: Yes all other systems are reviewed and are negative Constitutional: Constitutional: Reports as per [facility] Past Medical History Medical History (Updated 04/04/24 @ 20:28 by ASHLEY Hamilton) Prostate cancer Depression Anxiety GERD (gastroesophageal reflux disease) Surgical History Hx of colonoscopy H/O prostatectomy Social History Social History Household Members: Significant Other Housing: House Do you presently have visiting nurse or other home services: No Comment: patient rings appropriately Patient Tobacco Use Status: Former Tobacco user Smoked in Last 30 Days: No Use of substances other than those prescribed or required for medical reasons: No Advance Directives: No Advance Directives Information Provided: No Do you have a plan to hurt others: No Plan service: No Physical Exam Vital Signs: Vital Signs: Last Vital Signs Temp 98 F 04/04/24 11:27 Pulse 63 04/04/24 19:17 Resp 16 04/04/24 19:17 BP 138/89 04/04/24 19:17 Pulse Ox 98 04/04/24 19:17 O2 Del Method Room Air 04/04/24 19:17 BMI result Body Mass Index 21.0 Const: General: cooperative, comfortable, anxious and diaphoretic Orientation/consciousness: patient oriented x3 Limitations: no limitations HEENT: Head: Yes normal to inspection, Yes normocephalic and Yes atraumatic Ears: hearing grossly normal bilaterally General nose exam: Normal external nose present Face and sinus: Yes normal facial exam Mouth: Normal oral and palatal mucosa present, oropharynx normal and moist mucous membranes Throat: Yes posterior oropharynx normal Eyes: General: appearance normal, both eyes and all related structures Eyelids: Yes eyelids normal Conjunctivae: conjunctivae normal Sclerae: sclerae normal Pupils: Equal, round and reactive pupils present EOM: EOMs intact bilaterally Neck: Neck: Yes normal visual inspection, Yes full ROM and Yes no lymphadenopathy Lymphatic: no lymphadenopathy noted Chest: Chest palpation & inspection: normal inspection of the chest Resp: Effort & Inspection: normal respiratory effort and able to speak in complete sentences Auscultation: clear to auscultation bilaterally, no crackles, no rales, no rhonchi and no wheezes Cardio: Rate: regular rate Rhythm: regular rhythm Heart sounds: S1 normal heart sound present and S2 normal heart sound present GI: Inspection: Yes normal to inspection Skin: General skin exam: no rashes or lesions noted Trauma: no lacerations or abrasions Wounds: no wounds Neuro: General: patient oriented x3 and moves all extremities Cranial nerves: Yes CN's II-XII intact bilaterally and Yes Equal, round and reactive pupils present Cognition (Neuro): normal cognition Gait exam (Neuro): Normal gait present Motor exam (neuro): 5/5 motor strength present throughout Extrem: General: Yes normal to inspection Right upper extremity: normal to inspection Left upper extremity: normal to inspection Right lower extremity: normal to inspection Left lower extremity: normal to inspection Course Reevaluation(s) Reevaluation #1: Pt feeling much better. Review of lab revealing no leukocytosis, stable H&H, Chemistry WNL. DDimer elevated at 515. Given elevation, will obtain CTA to r/o PE. He is well appearing, stable, not hypoxic or tachycardic. Time: 12:26 Reevaluation #2: pt remains stable, no concerns, awaiting CTA chest. Time: 14:00 Reevaluation #3: Pt requesting pain medication for right elbow pain - he gets oxycodone at home for pain at this time. Oxycodone 5mg PO ordered. Sign out given to my colleague, Tamika Zuluaga PA-C pending repeat trop and CTA Time: 16:24 Additional Reevaluation(s): 2024-- I received patient in sign-out pending repeat troponin and CTA chest. Delta troponin flat. CTA chest showing bilateral acute segmental and subsegmental lower lobe pulmonary emboli. On re-evaluation, patient now reports nausea with one episode of vomiting. > given syncopal episode earlier today, now with nausea/vomiting, discussed case with hospitalist Dr. Vines who has agreed to admit patient for further management. Lovenox ordered. plan discussed with patient who is agreeable to admission. he is stable at this time. -- tamika zuluaga pa-c CT angio chest PE protocol IMPRESSION: Bilateral acute segmental and subsegmental lower lobe pulmonary emboli Dr. Alvarez rendered a preliminary interpretation at 1630 hours on 04/04/24 VTE: positive Medications Administered Generic Name Dose Route Start Last Admin Trade Name Freq PRN Reason Stop Dose Admin Enoxaparin Sodium 70 mg 04/04/24 19:15 04/04/24 19:23 Enoxaparin Sodium 80 Mg/0.8 Ml Syringe SUBCUT 70 mg Q12H LOY Administration Discontinued Medications Generic Name Dose Route Start Last Admin Trade Name Freq PRN Reason Stop Dose Admin Sodium Chloride 1,000 mls @ 999 mls/hr 04/04/24 11:19 04/04/24 16:34 Ns IV 04/04/24 12:19 Infused .Q1H1M ONE Infusion Iohexol 100 ml 04/04/24 13:28 04/04/24 13:28 Iohexol 350 Mg/Ml 100 Ml Infus..Btl IV 04/04/24 13:29 70 ml ONCE ONE Administration Lorazepam 1 mg 04/04/24 11:10 04/04/24 11:24 Lorazepam 2 Mg/Ml Vial IVPUSH 04/04/24 11:11 1 mg ONCE ONE Administration Ondansetron HCl 4 mg 04/04/24 19:08 04/04/24 19:23 Ondansetron Hcl 4 Mg/2 Ml Vial IVPUSH 04/04/24 19:09 4 mg ONCE ONE Administration Oxycodone HCl 5 mg 04/04/24 16:19 04/04/24 16:35 Oxycodone Hcl Immed Release 5 Mg Tablet PO 04/04/24 16:20 5 mg ONCE ONE Administration Medical Decision Making Medical Decision Making [facility] Narrative: This is a 63-year-old male, with a history of anxiety, and recent ORIF of the right olecranon on 03/19/2024, who presents emergency department after witnessed syncopal episode. On arrival, pt diaphoretic, pale, with normal vital signs. He reports feeling very anxious. He is alert and oriented x 4. DDX including vasovagal syncope, electrolyte derangment, dehydration, PE, syncope, ACS. Given symptoms and presentation, will obtain labs, ekg, ddimer. Differential Diagnosis Differential Diagnoses: The differential diagnosis associated with the presentation includes see above Admission/Observation Consideration of admission/observation: Escalation of care including admission/observation considered Escalation of care including admission/observation considered however given workup today not warranted at this time. Consult Healthcare Provider Management of the patient was discussed with: Call Center Assistant Dr. Sotelo, cardiology Lab Data [facility] Lab Attestation statement: I reviewed the patient's lab results. Review of lab revealing no leukocytosis, stable H&H, Chemistry WNL. DDimer elevated at 515. 04/04/24 11:04 04/04/24 12:16 Labs: Lab Results 04/04/24 04/04/24 04/04/24 Range/Units 11:04 12:16 16:42 WBC 10.6 (4.8-10.8) X10*3/uL RBC 4.83 (4.60-5.80) X10*6/uL Hgb 15.4 (14.0-18.0) g/dl Hct 43.7 (42.0-52.0) % MCV 90.5 (80.0-98.0) fL MCH 31.9 (27.0-33.0) pg MCHC 35.2 (31.0-36.0) g/dl RDW 12.2 (11.0-16.0) % Plt Count 333 D (160-400) X10*3/uL MPV 9.7 (9.4-12.4) fL Immature Gran % (Auto) 0.4 (0.0-0.4) % Neut % (Auto) 59.3 (45-73) % Lymph % (Auto) 28.1 (20-40) % [place] % (Auto) 10.2 (2-11) % Eos % (Auto) 1.5 (0-4) % Baso % (Auto) 0.5 (0-2) % Lymph # (Auto) 3.0 (1.2-4.9) X10*3/uL [place] # (Auto) 1.1 (0.1-1.2) X10*3/uL Eos # (Auto) 0.2 (0.0-0.4) X10*3/uL Baso # (Auto) 0.1 (0.0-0.2) X10*3/uL Abs Immat Gran (auto) 0.04 H (0.00-0.03) X10*3/uL Absolute Neuts (auto) 6.3 (2.0-8.3) x10*3/uL Absolute Nucleated RBC 0.000 (0.0-0.012) X10*3/uL Nucleated RBC % (auto) 0.0 (0.0-0.2) /100WBC D-Dimer High Sensitivty 515 NG/ML Sodium 141 (135-145) mmol/L Potassium 3.9 (3.3-5.1) mmol/L Chloride 103 (96-108) mmol/L Carbon Dioxide 27 (22-29) mmol/L Anion Gap 15 (12-20) BUN 20 H (9-16) mg/dL Creatinine 0.81 (0.5-1.4) mg/dL Estim Creat Clear Calc 92.9 Estimated GFR > 60 Random Glucose 97 (60-115) mg/dL Calcium 9.3 (8.4-10.2) mg/dL Magnesium 2.3 (1.6-2.6) mg/dL Total Bilirubin 0.6 (0.0-1.0) mg/dL Direct Bilirubin 0.2 (0.0-0.5) mg/dL AST 14 (5-37) U/L ALT 12 (0-40) U/L Alkaline Phosphatase 55 (39-117) U/L Troponin I High Sens < 2.7 3.3 (<3.5-35.0) ng/L Total Protein 6.5 (6.5-8.0) g/dL Albumin 4.0 (3.5-5.0) g/dL Independent Interpretation I performed an independent interpretation of an: EKG Interpretation: EKG normal sinus anastasia, TX interval 150, QRS 90, TX interval 150; Reviewed EKG with my attending physician, Dr. Crowley and given appearance of p axis, reached out to Dr. Sotelo who reports no abnormalities seen on EKG Radiology Impression Discussion of test interpretation with radiology: I have reviewed the radiologist's reading. Radiologist Impression: CT/CT head/brain wo IV con IMPRESSION: 1. No evidence of acute intracranial hemorrhage or edematous territorial infarction. Mild underlying microangiopathy. 2. No evidence of acute fracture or traumatic subluxation of the cervical spine. Moderate multilevel degenerative spondyloarthropathy of the cervical spine. Dictated By: Terrence Ruano DO Critical Care Time Critical Care Time Critical Care Time: Yes Total Critical Care Time: 35 Attestation: I have personally provided critical care time exclusive of time spent on separately billable procedures. Time includes review of lab data, radiology results, discussion with consultants, and monitoring for potential decompensation. Intervention performed as documented. Discharge Plan Discharge Clinical Impression: Pulmonary embolism, bilateral, Syncope Patient Disposition: Admitted As Inpatient Interventions: Admission Worksheet (ED) Last Done: 04/04/24 20:15
[2024-04-04 11:18] LABS: D Dimer High Sensitivity 515 NG/ML
[2024-04-04] MEDS: LORazepam 2 MG/ML VIAL 1 MG IVPUSH (11:24)
[2024-04-04] MEDS: 0.9 % Sodium Chloride 1,000 ML 999 ML IV (11:26)
[2024-04-04 11:27] VITALS: BP 120/81; PULSE 57; RESP 27; TEMP 36.6; O2SAT 100
[2024-04-04 11:46] LABS: Troponin-I High Sensitivity < 2.7 ng/L (<3.5-35.0)
[2024-04-04 12:54] LABS: Alanine Aminotransferase 12 U/L (0-40); Alkaline Phosphatase 55 U/L (39-117); Anion Gap 15 (12-20); Aspartate Amino Transferase 14 U/L (5-37); Bilirubin Direct 0.2 mg/dL (0.0-0.5); Bilirubin Total 0.6 mg/dL (0.0-1.0); Blood Urea Nitrogen 20 mg/dL (9-16); Calcium 9.3 mg/dL (8.4-10.2); Carbon Dioxide 27 mmol/L (22-29); Chloride 103 mmol/L (96-108); Creatinine Clr Calc Pharmacy 92.9; Estimated Glomerular Filt Rate > 60; Glucose Random 97 mg/dL (60-115); Magnesium 2.3 mg/dL (1.6-2.6); Potassium 3.9 mmol/L (3.3-5.1); Sodium 141 mmol/L (135-145); Total Protein 6.5 g/dL (6.5-8.0)
[2024-04-04 13:16] VITALS: BP 130/80; PULSE 74; RESP 22; O2SAT 97
[2024-04-04] MEDS: iohexoL 350 MG/ML 100 ML INFUS..BTL IV (13:28)
[2024-04-04] MEDS: oxyCODONE HCl Immed Release 5 MG TABLET PO (16:35)
[2024-04-04 17:12] LABS: Troponin-I High Sensitivity 3.3 ng/L (<3.5-35.0)
--- NOTE | 2024-04-04 17:16 | PC.NURSE ---
Report taken from Eboni ALEXANDER, assumed care of pt at this time. Pt resting comfortably, awaiting results and MD reeval, aware of plan of care.
[2024-04-04 17:17] VITALS: PULSE 67; RESP 16
--- NOTE | 2024-04-04 19:10 | PC.NURSE ---
Pt vomiting, PA notified awaiting new orders. CTA resulted, awaiting PA reeval.
[2024-04-04 19:17] VITALS: BP 138/89; PULSE 63; RESP 16; O2SAT 98
[2024-04-04] MEDS: ondansetron HCL 4 MG/2 ML VIAL IVPUSH (19:23)
[2024-04-04] MEDS: Enoxaparin Sodium 80 MG/0.8 ML SYRINGE 70 MG SUBCUT (19:23)
[2024-04-04 19:54] LABS: Prothrombin Time 11.9 SEC (11.1-13.3)
[2024-04-04 19:57] LABS: Partial Thromboplastin Time 33.1 SEC (26.0-36.8)
--- NOTE | 2024-04-04 20:20 | PC.NURSE ---
Bed assignment received, report given. Awaiting transport to floor.
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
--- NOTE | 2024-04-04 20:53 | PHA.MEDREC ---
Pharmacy Consult ? Medication Reconciliation Pharmacy has completed the medication reconciliation. Spoke to patient to confirm med list. Patient states he takes Alprazolam 0.25 mg Daily +plus 0.25 mg when needed. Patient says he no longer takes Acetaminophen 650 mg Q6H prn, and Docusate sodium 100 mg bid. Patient also stated he has to take Escitalopram 5mg/5ml 4 mg at bedtime, because the tablets are to small and get stuck in his throat. Patient was informed we do not have liquid form of this medication and needs to bring from home. Patient will have his bring in tomorrow.
[2024-04-04 21:20] LABS: B Type Natriuretic Peptide 28 pg/mL (<100)
[2024-04-04] MEDS: Cholecalciferol (Vitamin D3) 25 MCG TABLET PO (22:22)
[2024-04-04] MEDS: ALPRAZolam 0.25 MG TABLET PO (22:22)
[2024-04-04] MEDS: Acetaminophen 325 MG TABLET 650 MG PO (22:22)
[2024-04-04] MEDS: traZODone HCL 50 MG TABLET PO (22:22)
[2024-04-04] MEDS: Atorvastatin Calcium 10 MG TABLET PO (22:23)
[2024-04-04] MEDS: 0.9 % Sodium Chloride Flush 3 ML SYRINGE IVFLUSH (23:30)
[2024-04-05] VITALS (10 sets, daily range): BP systolic 103–138; BP diastolic 69–88; PULSE 60–108; RESP 16–20; TEMP 36.4–37; O2SAT 95–97
[2024-04-05] MEDS: Omeprazole 40 MG CAPSULE.DR PO (05:48)
[2024-04-05 06:41] LABS: MANUAL DIFF FLAG NO
[2024-04-05 06:50] LABS: Basophils Absolute Auto 0.1 X10*3/uL (0.0-0.2); Basophils Percent Auto 0.6 % (0-2); Eosinophils Absolute Auto 0.1 X10*3/uL (0.0-0.4); Eosinophils Percent Auto 1.5 % (0-4); Hemoglobin 14.4 g/dl (14.0-18.0); Imm Gran Abs Auto 0.03 X10*3/uL (0.00-0.03); Imm Gran Pct Auto 0.3 % (0.0-0.4); Lymphocytes Absolute Auto 1.5 X10*3/uL (1.2-4.9); Lymphocytes Percent Auto 17.2 % (20-40); Mean Corpuscular HGB Conc 35.1 g/dl (31.0-36.0); Mean Corpuscular Hemoglobin 31.8 pg (27.0-33.0); Mean Corpuscular Volume 90.5 fL (80.0-98.0); Mean Platelet Volume 9.8 fL (9.4-12.4); Monocytes Absolute Auto 0.8 X10*3/uL (0.1-1.2); Monocytes Percent Auto 9.4 % (2-11); Neutrophils Absolute Auto 6.3 x10*3/uL (2.0-8.3); Platelet Count 304 X10*3/uL (160-400); Red Blood Count 4.53 X10*6/uL (4.60-5.80); Red Cell Distribution Width 12.1 % (11.0-16.0); White Blood Count 8.9 X10*3/uL (4.8-10.8)
--- NOTE | 2024-04-05 07:00 | CA_ITS ---
Transthoracic Echocardiogram Patient (Last, First, Middle): Hebert Owens, Gender: Male Date of : 1960 Age: 63 Procedure Date: 04/05/2024 Procedure Type: Transthoracic Echocardiogram Location: [facility] [place] Height: 182.88 cm Weight: 70.31 kg BSA: 1.91 m2 Heart Rate: bpm BP: 138 / 86 mmHg Zipper Sewing Machine Operator: RADHA Cazares MD: Lizet Vines MD Electronic Device Monitor: Axel Sotelo MD Symptoms: PE Study Quality: Technically Difficult ECG Rhythm: Sinus Conclusions: - 1. Technically limited study due to off axis views 2. Normal LV ejection fraction of 60 65% with impaired relaxation filling pattern 3. Cardiac valvular Doppler is within normal limits 4. No gross pericardial effusion Findings Procedure Information The study quality is limited by patients body habitus and lung artifact. Left Ventricle Normal left ventricular size, thickness, and systolic function. The visually estimated ejection fraction is between 60-65%. Spectral Doppler is indicative of an impaired relaxation filling pattern. Right Ventricle Normal right ventricular cavity size. Atria The left atrium is normal in size. Interatrial shunt cannot be excluded. The right atrium was not well visualized. Aortic Valve Normal aortic valve structure and function. There is mild calcification of the aortic valve. There is no aortic valve stenosis. There is no aortic valve regurgitation. Mitral Valve There is mild anterior and posterior mitral leaflet thickening. There is trace mitral valve regurgitation. There is no mitral valve stenosis. Pulmonic Valve The pulmonic valve was not well visualized. Tricuspid Valve Normal tricuspid valve structure. There is trace tricuspid valve regurgitation. There is no evidence of pulmonary hypertension. Great Vessels The pulmonary artery was not well visualized. There is no dilatation of the ascending aorta measuring 3.30 cm. Venous The inferior vena cava is normal in size and collapses greater than 50% with inspiration. Pericardium/Pleural There is no evidence of pericardial effusion. Prior Study Comparison No prior study available for comparison. Measurements 2D Linear Measurements IVSd: 0.85 0.6-0.9/0.6-1.0 cm LVIDd: 5.08 3.9-5.3/4.2-5.9 cm LVIDd Index: 2.66 2.4-3.2/2.2-3.1 cm/m2 LVIDs: 2.61 2.0-3.6 cm LVPWd: 0.98 0.7-1.1 cm LA Diam: 2.90 2.7-3.8/3.0-4.0 cm LAIDs Index: 1.52 1.5-2.3 cm/m2 LV Mass: 205.61 67-162/88-224 g LV Mass Index: 107.65 43-95/49-115 g/m2 LVOT Diam: 2.10 3.0+(-)1.3 cm Mitral Valve MV Pk E: 0.64 MV PK A: 0.70 MV Decel Time: 291.00 E/A: 0.90 E'Lateral: 7.62 E'Medial: 6.53 E/E' Med: 9.80 E/E' Lat: 8.40 PHT: 85.00 MVA PHT: 2.59 Decel [place]: 2.19 Aortic Valve AoV Pk Deejay: 0.91 AoV Mn Deejay: 0.69 AoV VTI: 0.17 AoV Pk Grad: 3.00 Aov Mn Grad: 2.00 ALANA Cont.VTI: 2.99 LVOT LVOT Pk Deejay: 0.74 LVOT Mn Deejay: 0.53 LVOT VTI: 0.15 LVOT Pk Grad: 2.00 LVOT Mn Grad: 1.00 LVOT Diam: 2.10 LVOT Area: 3.46 Diastolic Function MV Pk E: 0.64 MV Pk A: 0.70 E/A: 0.90 E'Medial: 6.53 E/E' Med: 9.80 E' Laterial: 7.62 E/E' Lat: 8.40 Right Ventricle TVS' Deejay: 17.80 Tricuspid Valve TR Pk Deejay: 1.13 TR Pk Grad: 5.00 RA Press: 3.00 RVSP: 8.00 Great Vessels Aorta Sinus of Valsalva: 3.80 2.0-3.5 cm Ao Asc: 3.30 2.1-3.4 cm Pulmonary Valve PV Pk Deejay: 0.73 Peak PV Grad: 2.00 Updated in Other Vendor System with Status of Final Axel Sotelo MD electronically signed on 04/06/2024 1:14:09 PM with status of Final
[2024-04-05 07:27] LABS: Anion Gap 15 (12-20); Blood Urea Nitrogen 17 mg/dL (9-16); Calcium 9.6 mg/dL (8.4-10.2); Carbon Dioxide 25 mmol/L (22-29); Chloride 105 mmol/L (96-108); Creatinine Clr Calc Pharmacy 88.5; Estimated Glomerular Filt Rate > 60; Glucose Random 86 mg/dL (60-115); Potassium 4.3 mmol/L (3.3-5.1); Sodium 141 mmol/L (135-145)
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
[2024-04-05] MEDS: Enoxaparin Sodium 80 MG/0.8 ML SYRINGE 70 MG SUBCUT ×2 (08:01→20:32)
[2024-04-05] MEDS: 0.9 % Sodium Chloride Flush 3 ML SYRINGE IVFLUSH ×3 (08:02→20:33)
--- NOTE | 2024-04-05 08:48 | MHC.CM.PN ---
CM met with Patient at bedside. Patient lives in a house with his /HCP/Solo and he was attending Outpatient Rehab here at the hospital after recent surgery done here for an Elbow Fracture (Brace on (R) arm). Home/resume said services is the goal and CM has initiated and will follow for dc planning. PCP is Dr. Lanre Pratt.
[2024-04-05] MEDS: oxyCODONE HCl Immed Release 5 MG TABLET PO (13:48)
[2024-04-05] MEDS: Cholecalciferol (Vitamin D3) 25 MCG TABLET PO (20:33)
[2024-04-05] MEDS: ALPRAZolam 0.25 MG TABLET PO (20:33)
[2024-04-05] MEDS: traZODone HCL 50 MG TABLET PO (20:33)
[2024-04-05] MEDS: Atorvastatin Calcium 10 MG TABLET PO (20:33)
[2024-04-06 04:00] VITALS: BP 136/87; PULSE 56; RESP 16; TEMP 37.1; O2SAT 97
[2024-04-06] MEDS: Omeprazole 40 MG CAPSULE.DR PO (05:08)
[2024-04-06 07:29] VITALS: BP 134/84; PULSE 58; RESP 18; TEMP 36.8; O2SAT 97
[2024-04-06] MEDS: oxyCODONE HCl Immed Release 5 MG TABLET PO (08:01)
[2024-04-06] MEDS: Apixaban 5 MG TABLET 10 MG PO (08:02)
[2024-04-06] MEDS: 0.9 % Sodium Chloride Flush 3 ML SYRINGE IVFLUSH (08:02)
--- NOTE | 2024-04-06 10:04 | MHC.CM.PN ---
Patient has been medically cleared for dc to home today, with services. A referral has been made to [facility], who has been made aware of today's dc.
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
--- NOTE | 2024-04-06 10:14 | MHC.CM.PN ---
Patient has been medically cleared for dc to home today, self care. Per MD's request, [employer] has provided Patient with the [employer] 30 day free trial offer coupon.
== END 2024-04-06 14:23 | disposition home or self-care (01) | DRG 176 ==
LOC: HO.ED 16:34 → HO.EDOVER 19:39 → HO.IMC 20:02
PROVIDERS: Physician Assistant Medical; Admitting Provider Student in an Organized Health Care Education/Training Program; Emergency Provider Student in an Organized Health Care Education/Training Program; PCP Internal Medicine; Visit Provider Internal Medicine
DX: I26.99 Other pulmonary embolism without acute cor pulmonale (principal); I26.94 Multiple subsegmental thrombotic pulmonary emboli without acute cor pulmonale; K21.9 Gastro-esophageal reflux disease without esophagitis; E78.5 Hyperlipidemia, unspecified; F41.9 Anxiety disorder, unspecified; F43.10 Post-traumatic stress disorder, unspecified; Z85.46 Personal history of malignant neoplasm of prostate; Z87.820 Personal history of traumatic brain injury; Z87.891 Personal history of nicotine dependence; Z79.899 Other long term (current) drug therapy
CPT/HCPCS: 36415; 70450; 71275; 72125; 80048; 80076; 83735; 83880; 84484; 85025; 85379; 85610; 85730; 93005; 93306; 93970; 99285; J1650; J2060; J2405; Q9957; Q9967

== ENCOUNTER → 2024-04-04 10:59 | Outpatient (BNV) | payer OTHER, SELFPAY | PROVIDERS: Emergency Provider Student in an Organized Health Care Education/Training Program; PCP Internal Medicine; Visit Provider Internal Medicine Cardiovascular Disease | DX: R55 Syncope and collapse (principal) | CPT/HCPCS: 93010 ==

== ENCOUNTER 2024-04-04 19:14 | Outpatient (BNV) | payer OTHER, SELFPAY | END 2024-04-05 07:00 | PROVIDERS: Admitting Provider Student in an Organized Health Care Education/Training Program; Emergency Provider Student in an Organized Health Care Education/Training Program; PCP Internal Medicine; Visit Provider Internal Medicine Cardiovascular Disease | DX: I35.8 Other nonrheumatic aortic valve disorders (principal); R93.1 Abnormal findings on diagnostic imaging of heart and coronary circulation | CPT/HCPCS: 93306 ==

== ENCOUNTER → 2024-04-04 19:14 | Outpatient (BNV) | payer OTHER, SELFPAY | PROVIDERS: Admitting Provider Student in an Organized Health Care Education/Training Program; Emergency Provider Student in an Organized Health Care Education/Training Program; PCP Internal Medicine; Visit Provider Student in an Organized Health Care Education/Training Program | DX: I26.99 Other pulmonary embolism without acute cor pulmonale (principal) | CPT/HCPCS: 99223; 99232; 99239 ==

== ENCOUNTER 2024-04-29 09:48 | Outpatient (REF) | payer OTHER, SELFPAY ==
--- NOTE | ~2024-04-29 | XR_ITS ---
EXAMINATION: XR ELBOW, RIGHT CLINICAL INFORMATION: Pain and unspecified elbow COMPARISON: 04/01/2024, 03/16/2024 XR/XR elbow RT min 3V IMPRESSION: Status post ORIF of previously identified fracture through the olecranon with K wires and cerclage wires. FINDINGS: Large joint effusion with soft tissue swelling. Status post ORIF of previously identified fracture through the olecranon with K wires and cerclage wires. Hardware appears intact. Alignment maintained. IMPRESSION: 1. Status post ORIF of previously identified fracture through the olecranon with K wires and cerclage wires. Hardware appears intact. Alignment maintained. 2. Large joint effusion soft tissue swelling. Electronically signed by: Elin Man MD 05/27/2024 01:30 PM EDT
== END 2024-04-29 09:49 | disposition home or self-care (01) ==
LOC: HO.HOSX 09:48
PROVIDERS: Visit Provider Physician Assistant
DX: M25.521 Pain in right elbow (principal)
CPT/HCPCS: 73080

== ENCOUNTER 2024-04-29 12:41 | Outpatient (AMB) | payer OTHER, SELFPAY ==
--- NOTE | 2024-04-29 13:06 | A.OFFVIS_ITS ---
Intake Visit Reasons: PO - Rt elbow ORIF 03/18/24 NE Intake Note: Hebert is a 63 year old left hand dominant male who presents today for a post op appointment s/p ORIF Rt elbow 03/18/24. Patient reports he is doing well, however he feels . He mentions that he is going to [place] and [place] for PT. Patient states ever since he started the blood thinners he started to get headaches. Allergies acetaminophen [From PERCOCET] Allergy (Mild, Verified 04/29/24 13:25) VOMITING From PERCOCET Allergy (Mild, Uncoded 04/01/24 11:01) VOMITING HPI HPI PO - Rt elbow ORIF 03/18/24 NE: Details: 63-year-old left hand dominant male who presents in the office today 6 weeks status post right olecranon ORIF, which was performed on 03/18/[address] Ng.?I last saw the patient in the office on 04/01/24 when he was placed in a ROM brace with ROM 30-100 degrees. A refill of oxycodone 5 mg PO Q4H PRN was sent to the pharmacy. He was also referred to occupational therapy. ? ? While in the office today, the patient reports he is doing well. He confirms attending physical therapy at [facility]. He states he feels like he is a little behind on his progression. He also reports the blood thinner is giving him a headache. ? PFSH Medical History Prostate cancer Depression Anxiety GERD (gastroesophageal reflux disease) Surgical History Hx of colonoscopy H/O prostatectomy Social History Household Members: Spouse Housing: House Do you presently have visiting nurse or other home services: No Comment: patient rings appropriately Patient Tobacco Use Status: Former Tobacco user Second Hand Smoke Exposure: No service: No Review of Systems Const All systems reviewed & are unremarkable except as noted in HPI and below Physical Exam Const General: cooperative, healthy appearing and no acute distress Resp Effort & Inspection: normal respiratory effort and able to speak in complete sentences Cardio Rate: regular rate Peripheral pulses: Peripheral pulses 2+ throughout GI Palpation (GI): Soft to palpation Skin Lesions: no lesions Rashes: no rashes Extrem Other: Right elbow: Prior incision site is well approximated and completely healed. Lacking 25 degrees of full extension. Flexion to 90 degrees. No signs of infection. NVI.? Assessment & Plan Assessment & Plan (1) Closed fracture of right olecranon process: Code(s): S52.021A - Displaced fracture of olecranon process without intraarticular extension of right ulna, initial encounter for closed fracture Category: Medical Qualifiers: Encounter type: initial encounter Qualified Code(s): S52.021A - Displaced fracture of olecranon process without intraarticular extension of right ulna, initial encounter for closed fracture Plan Mr. Owens is a 63-year-old left hand dominant male who presents in the office today 6 weeks status post right olecranon ORIF, which was performed on 03/18/[address] Ng.?I last saw the patient in the office on 04/01/24 when he was placed in a ROM brace with ROM 30-100 degrees. A refill of oxycodone 5 mg PO Q4H PRN was sent to the pharmacy. He was also referred to occupational therapy. ? While in the office today, the patient reports he is doing well. He confirms attending physical therapy at [facility]. He states he feels like he is a little behind on his progression. He also reports the blood thinner is giving him a headache.? ? The patient is attending occupational therapy at [facility] and has a good relationship with the therapist. He also states he feels like he is making progress. I would like for the patient to continue attending. He will continue to wear the brace. Overall, I feel he is doing well postoperatively. ? ? The patient was seen by our occupational therapy office on 04/15/2024 where he was working on pronation and supination when he fainted. He was found to have bilateral PEs and was placed on Eliquis. He will remain on this medication for the next three months.? ? ? Follow-up will be in four weeks, or sooner if needed. ? ? X-rays of the right elbow which were obtained while in the office today and were reviewed by me, Masha Hester PA-C, revealed intact orthopedic hardware with routine healing. ? Orders: Orders XR elbow RT min 3V Today M25.529 - Pain in unspecified elbow Patient Instructions: Scribed by Octavia Serrano, medical administrative, for Masha Hester PA-C on 04/29/2024 at 12:42 pm, EST.? Coding Level of Care Code Global (17901) Diagnoses Closed fracture of olecranon process of right ulna, initial encounter S52.021A Encounter type: initial encounter
== END 2024-04-29 13:39 | disposition home or self-care (01) ==
PROVIDERS: PCP Internal Medicine; Visit Provider Physician Assistant
DX: S52.021A Displaced fracture of olecranon process without intraarticular extension of right ulna, initial encounter for closed fracture (principal)
CPT/HCPCS: 99024

== ENCOUNTER 2024-05-29 09:32 | Outpatient (AMB) | payer OTHER, SELFPAY ==
--- NOTE | 2024-05-29 09:39 | MHC.OFFVIS ---
Intake Visit Reasons: PO - right elbow ORIF 03/18/24 NE Intake Note: Hebert is a 63 year old left hand dominant male who presents today for a post op appointment s/p ORIF Rt elbow 03/18/24. Patient reports that he is doing well, with complaints of frozen shoulder. Questioning if cortisone injection would be helpful.He is having some stiffness of the elbow, continuing with PT. He has been wearing the brace but it has been quite irritating. Allergies acetaminophen [From PERCOCET] Allergy (Mild, Verified 04/29/24 13:25) VOMITING From PERCOCET Allergy (Mild, Uncoded 04/01/24 11:01) VOMITING HPI HPI PO - right elbow ORIF 03/18/24 NE: Details: Hebert is a 63 year old left hand dominant male who presents today for a post op appointment s/p ORIF Rt elbow 03/18/24. Patient reports that he is doing well, with complaints of frozen shoulder. He is having some stiffness of the elbow, continuing with PT. He has been wearing the brace but it has been quite irritating. Concerns of frozen shoulder, would like to discontinue brace. Asking if cortisone injection would be beneficial for frozen shoulder. [facility] Medical History Prostate cancer Depression Anxiety GERD (gastroesophageal reflux disease) Surgical History Hx of colonoscopy H/O prostatectomy Social History Household Members: Spouse Housing: House Do you presently have visiting nurse or other home services: No Comment: patient rings appropriately Patient Tobacco Use Status: Former Tobacco user Second Hand Smoke Exposure: No service: No Physical Exam Extrem Other: Right elbow with excellent range of motion well-healed incision. External rotation of the right shoulder limited to approximately 5 degrees. Office Procedures Joint Injection/Aspiration Joint Injection/Aspiration Details: Injected 1 mL of Decadron and 3 mL 1% lidocaine and 3 mL of 0.25% Marcaine. Site was prepped using aseptic technique. Patient tolerated the procedure well. Primary Site: right shoulder Approach Used: anterolateral Coding 68712 - Large joint Procedure code (CPT) selection complete Assessment & Plan Assessment & Plan (1) Closed fracture of right olecranon process: Code(s): S52.021A - Displaced fracture of olecranon process without intraarticular extension of right ulna, initial encounter for closed fracture Category: Medical Qualifiers: Encounter type: initial encounter Qualified Code(s): S52.021A - Displaced fracture of olecranon process without intraarticular extension of right ulna, initial encounter for closed fracture Plan: Healing well with excellent range of motion. (2) Fracture of olecranon, right, open: Code(s): S52.021B - Displaced fracture of olecranon process without intraarticular extension of right ulna, initial encounter for open fracture type I or II Category: Medical Plan: Healing well with excellent range of motion. (3) Frozen shoulder: Code(s): M75.00 - Adhesive capsulitis of unspecified shoulder Category: Medical Plan: I injected his right shoulder. I recommend physical therapy for adhesive capsulitis. Plan No heavy lifting, Shown at home exercise program to work on ROM and stretching for frozen shoulder. I injected the right shoulder today Orders: Orders PT Evaluation and Treatment Today M75.00 - Adhesive capsulitis of unspecified shoulder Coding Level of Care Code Est Pt Level 3 (75051) Global (42095) Diagnoses Closed fracture of olecranon process of right ulna, initial encounter S52.021A Encounter type: initial encounter Fracture of olecranon, right, open S52.021B Frozen shoulder M75.00 CPT Codes Coding - 51181 Large joint: 28580 - Large joint ([id number])
== END 2024-05-29 10:50 | disposition home or self-care (01) ==
PROVIDERS: PCP Internal Medicine; Visit Provider Physician Assistant
DX: S52.021A Displaced fracture of olecranon process without intraarticular extension of right ulna, initial encounter for closed fracture (principal); S52.021B Displaced fracture of olecranon process without intraarticular extension of right ulna, initial encounter for open fracture type I or II; M75.01 Adhesive capsulitis of right shoulder
CPT/HCPCS: 20610; 99024; 99213

== ENCOUNTER → 2024-05-29 09:32 | Outpatient (BNVA) | payer OTHER, SELFPAY | PROVIDERS: PCP Internal Medicine; Visit Provider Physician Assistant | DX: S52.021D Displaced fracture of olecranon process without intraarticular extension of right ulna, subsequent encounter for closed fracture with routine healing (principal); M75.01 Adhesive capsulitis of right shoulder | CPT/HCPCS: 20610; J0665; J1100 ==